=== PATIENT | male | born 1975 | race African-American/Black ===

== ENCOUNTER 2018-01-20 05:44 | Inpatient (IN) | payer BC, OTHER ==
[2018-01-20] MEDS ORDERED: methylPREDNISolone 125 MG* 2 ML VIAL IV ONE (06:06)
[2018-01-20] MEDS ORDERED: Albuterol/Ipratropium NEB.SOL* Albuterol 2.5 MG/Ipratropium 0.5 MG 3 ML INH ONE (06:06)
[2018-01-20] MEDS ORDERED: methylPREDNISolone 125 MG* 2 ML VIAL ONE (06:08)
[2018-01-20] MEDS ORDERED: Albuterol/Ipratropium NEB.SOL* Albuterol 2.5 MG/Ipratropium 0.5 MG 3 ML ONE ×2 (06:08→06:33)
--- OUTSIDE RECORDS SUMMARY | 2018-01-20 06:21 | XMS REPORT | Continuity of Care Document ---
:1975 External Reference #:[id number] Author Name Inna Lion Care Team Providers Name Role Phone Patient's Choice Primary Care Physician Unavailable Payers Type Date Identification Numbers Payment Provider Subscriber Policy Number: [id number] [employer] Arnoldo Álvarez PayID: [id number] [address] [address] [place] [address] Onset: 2017 Policy Number: [id number] [employer] Arnoldo Álvarez Group Name: [phone] [address] PayID: [id number] [place] [address] Advance Directives Description No Information Available Problems Description No Information Family History Date Family Member(s) Problem(s) Comments General Hypertension General Cancer Social History Type Date Description Comments Sex Unknown Lives With Spouse 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 ETOH Use Occasionally consumes alcohol Tobacco Use Start: Unknown Patient is a current smoker, smokes every day Smoking Status Reviewed: 01/07/18 Patient is a current smoker, smokes every day Exercise Type/Frequency Does not exercise Allergies, Adverse Reactions, Alerts Description No Known Drug Allergies Medications Medication Date Status Form Strength Qnty SIG Indications Ordering Provider Prednisone Active Tablets 10mg Humayun, 000 Arnel, MBBS Escitalopram Active Tablets 20mg take 1 Unknown Oxalate 000 tablet once daily Dulera Active Aerosol 200-5mcg/A inhale [address]uffs twice a day With Chamber - Rinse Mouth After Use Spiriva Active Aerosol 1.25mcg/Ac Unknown Respimat 000 t Montelukast Active Tablets 10mg take 1 Unknown Sodium 000 tablet by mouth once daily Omeprazole Active Capsules 40mg [address] by mouth once daily, 30 minutes prior to breakfast . Medications Administered in Office Medication Date Status Form Strength Qnty SIG Indications Ordering Provider Depomedrol Administered Injection Horace Sunshine, 20MG 018 M.D. Depomedrol Administered Injection Horace Sunshine, 40MG 017 M.D. Immunizations Description No Information Available Vital Signs Date Vital Result Comment 01/07/2018 8:12am Height 71 inches 5'11" Weight 260.00 lb Heart Rate 82 /min BP Systolic 140 mmHg BP Diastolic 82 mmHg Respiratory Rate 18 /min Body Temperature 97.6 F Pain Level 5 BMI (Body Mass Index) 36.3 kg/m2 12/16/2017 8:35am Heart Rate 70 /min BP Systolic 132 mmHg BP Diastolic 88 mmHg Body Temperature 98.2 F Pain Level 5 12/07/2017 8:06am Heart Rate 88 /min BP Systolic 144 mmHg BP Diastolic 98 mmHg Respiratory Rate 18 /min Pain Level 4 11/25/2017 8:54am Height 71 inches 5'11" Weight 255.00 lb BP Systolic 122 mmHg BP Diastolic 78 mmHg Respiratory Rate 18 /min Body Temperature 97.4 F Pain Level 7 BMI (Body Mass Index) 35.6 kg/m2 05/01/2017 3:22pm Height 71 inches 5'11" Weight 255.00 lb BP Systolic 122 mmHg BP Diastolic 81 mmHg Respiratory Rate 15 /min Pain Level 4 BMI (Body Mass Index) 35.6 kg/m2 10/13/2016 3:18pm Height 71 inches 5'11" Weight 240.00 lb BP Systolic 128 mmHg BP Diastolic 88 mmHg Respiratory Rate 20 /min Body Temperature 97.3 F Pain Level 4 BMI (Body Mass Index) 33.5 kg/m2 Results Description No Information Available Procedures Date Code Description Status 12/16/201739394 Inject/Drain Joint/Bursa Major W/O US Completed 10/13/2016 13935 Inject/Drain Joint/Bursa Major W/O US Completed Encounters Type Date Location Provider Dx Diagnosis Office Visit 12/07/2017 Orthopedic Horace Sunshine M.D. M25.511 Pain in right 8:15a [facility] S46.011D Strain of musc/tend the rotator cuff of right shoulder, subs Office Visit 11/25/2017 8:45a Orthopedic Horace Sunshine S46.011A Strain of [facility] musc/tend the [facility] rotator cuff of right shoulder, init Office Visit 05/01/2017 3:15p [facility] M21.611 Bunion of right [facility] M20.41 Other hammer toe(s) (acquired), right foot Office Visit 10/13/2016 Orthopedic Horace Sunshine, M65.812 Other synovitis and 3:00p [facility] tenosynovitis, left [facility] shoulder M20.41 Other hammer toe(s) (acquired), right foot M75.82 Other shoulder lesions, left shoulder M75.52 Bursitis of left shoulder Plan of Treatment 01/07/2018 - Graham Chavez, MDS46.011A Strain of muscle(s) and tendon(s) of the rotator cuff of rigFollow up:to OR
--- NOTE | 2018-01-20 06:24 | ED ---
Asthma - HPI Summary HPI Summary: Patient presents with acute on chronic asthma exacerbation. He reports this started about 2 weeks ago and has gotten worse recently. He initially started with URI symptoms which have subsided to simply rhinorrhea at this point. He denies fever, chills, chest pain, back pain, hemoptysis, abdominal pain, nausea , vomiting, diarrhea, lower extremity swelling. He has a history of asthma and early COPD. At home, he typically uses a DuoNeb nebulizer however he ran out of his solution. He has been using his albuterol HFA along with his dulera and spiriva w/o relief. Additionally, he reports he's been taking 20 mg of prednisone orally daily. Yesterday at 10:00 in the morning, he took 60 mg of prednisone without relief. 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 He has a history of asthma exacerbation requiring hospitalization. Also mentions he has a h/o Rt rib fx from coughing and has had some popping on this side with severe cough. No other issues at this time. - History of Current Complaint Chief Complaint: EDShortnessOfBreath Stated Complaint: SOB Time Seen by Provider: 01/20/18 05:56 Hx Obtained From: Patient Pain Intensity: 0 - Allergy/Home Medications Allergies/Adverse Reactions: Allergies Allergy/AdvReac Type Severity Reaction Status Date / Time No Known Allergies Allergy Verified 01/20/18 05:51 PMH/Surg Hx/FS Hx/Imm Hx Previously Healthy: Yes Endocrine/Hematology History: Denies: Hx Anticoagulant Therapy, Hx Diabetes, Hx Thyroid Disease Cardiovascular History: Denies: Hx Congenital Heart Disease, Hx Congestive Heart Failure, Hx Deep Vein Thrombosis, Hx Hypertension, Hx Myocardial Infarction, Hx Pacemaker/ICD Respiratory History: Reports: Hx Asthma, Hx Chronic Obstructive Pulmonary Disease (COPD) - h/o smoking, Other Respiratory Problems/Disorders - h/o rib fx Denies: Hx Lung Cancer, Hx Pneumonia, Hx Pulmonary Embolism GI History: Denies: Hx Gall Bladder Disease, Hx Gastrointestinal Bleed, Hx Ulcer, Hx Urosepsis History: Denies: Hx Kidney Stones, Hx Renal Disease Sensory History: Denies: Hx Hearing Aid Neurological History: Denies: Hx Dementia, Hx Migraine, Hx Seizures, Hx Transient Ischemic Attacks (TIA) Psychiatric History: Reports: Hx Anxiety, Hx Depression Denies: Hx Panic Disorder, Hx Schizophrenia, Hx Bipolar Disorder - Surgical History Surgery Procedure, Year, and Place: RIGHT ANKLE Infectious Disease History: No Infectious Disease History: Denies: Traveled Outside the [place] in Last 30 Days - Family History Known Family History: Positive: Hypertension Negative: Cardiac Disease - Social History 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 Negative: Epistaxis, Dental Pain, Sore Throat, Ear Ache Cardiovascular: Negative Negative: Palpitations, Chest Pain Positive: Shortness Of Breath, Cough Gastrointestinal: Negative Positive: no symptoms reported Musculoskeletal: Negative Skin: Negative Positive: Headache - from cough Psychological: Normal All Other Systems Reviewed And Are Negative: Yes Physical Exam Triage Information Reviewed: Yes Vital Signs On Initial Exam: Initial Vitals Temp Pulse Resp BP Pulse Ox 98.9 F 96 26 136/94 95 01/20/18 05:46 01/20/18 05:46 01/20/18 05:46 01/20/18 05:46 01/20/18 05:46 Vital Signs Reviewed: No Appearance: Positive: No Pain Distress, Ill-Appearing - appears mildly fatigued - worked 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 Negative: Conjunctiva Inflammed, Discharge ENT: Positive: Normal ENT inspection, Hearing grossly normal, Pharynx normal, TMs normal, Sinus tenderness - maxillary w/ mild TTP. Negative: Nasal congestion, Tonsillar swelling, Tonsillar exudate Neck: Positive: Supple, Nontender, No Lymphadenopathy Respiratory/Lung Sounds: Positive: Wheezes - diffuse throughout. Negative: Decreased Breath Sounds, Rales, Rhonchi, Subcutaneous Emphysema, Stridor, Tracheal Deviation, Unable to speak in full sentences, Fatigue Cardiovascular: Positive: Normal, RRR, S1, S2. Negative: Murmur, Rub, Leg Edema Left, Leg Edema Right Abdomen Description: Positive: Nontender, No Organomegaly, Soft Bowel Sounds: Positive: Present Musculoskeletal: Positive: Normal, Strength/ROM Intact Neurological: Positive: Normal, Sensory/Motor Intact, Alert, Oriented to Person Place, Time, CN Intact II-III Psychiatric: Positive: Normal Diagnostics - Vital Signs Vital Signs Temp Pulse Resp BP Pulse Ox 01/20/18 05:46 98.9 F 96 26 136/94 95 - Laboratory Result Diagrams: 01/20/18 08:02 01/20/18 08:02 Lab Statement: Any lab studies that have been ordered have been reviewed, and results considered in the medical decision making process. Re-Evaluation - Re-Evaluation First Eval Change: Unchanged - peak flow pre and post duoneb and solumedrol is 200 - 50% if 300's; pt reports breathing is slighltly easier but "I'm not there yet" ( breathing is still difficult) Asthma Course/Dx - Course Course Of Treatment: Pt presents with acute on chronic asthma/COPD exacerbation. He routinely uses DuoNeb, Dulera and Spiriva and is followed by pulmonology in [place]. He ran out of his DuoNeb recently and has been trying to supplement with oral prednisone at home. He's been taking 20 mg daily however admits he took 60 mg yesterday. He's also been using his albuterol HFA. None of these interventions have been helping and his breathing became so difficult today that he had to leave in the middle of his work shift. He appears to be in a moderate exacerbation clinically and so DuoNeb every 20 mins + Solu-Medrol 125mg IV were initiated. However learning his peak flow was less than 50% with no improvement after treatments and pulse ox dropped from 95-90% and room air, patient was placed on 2 L oxygen via nasal cannula, 2 g of magnesium IV ordered, labs ordered and discussed case with Dr. Ellie Valencia who agrees to admit pending labs. Patient's wet read chest x-ray is unremarkable for acute pulmonary findings (reviewed with Dr. Wing as well). Patient is comfortable and pulse ox has increased to 97% on 2 L nasal cannula. UPDATE: Chronic appearing fracture of the right seventh rib posteriorly. Labs: WBCs 14.4, hemoglobin 13.4, hematocrit 40, MCV 97, MCH 32, absolute neuts 12.7, absolute lymphs 0.9, venous PCO2 39, venous PO2 57, venous O2 sat 90.5, creatinine 1.2. All other labs within normal limits. - Diagnoses Provider Diagnoses: Asthma exacerbation, COPD exacerbation Discharge - Sign-Out/Discharge Documenting (check all that apply): Patient Departure - Discharge Plan Condition: Stable Disposition: ADMITTED TO [facility] Referrals: Jason Adame DO [Primary Care Provider] - - Billing Disposition and Condition Condition: STABLE Disposition: Admitted to [facility]
[2018-01-20] MEDS: Albuterol/Ipratropium NEB.SOL* Albuterol 2.5 MG/Ipratropium 0.5 MG 3 ML INH PRN ×3 (06:29→06:59)
[2018-01-20] MEDS ORDERED: Magnesium Sulfate IV* 0.5 GM/ML 2 ML VIAL (1 GM) IVPB ONE (07:37)
[2018-01-20] MEDS ORDERED: NS 0.9% 1000 ML* 1,000 ML IV ONE (07:37)
[2018-01-20 08:13] LABS: ABS Basophils 0 10^3/ul (0-0.2); ABS Eosinophils 0 10^3/ul (0-0.6); ABS Lymphocytes 0.9 10^3/ul (1.0-4.8); ABS Monocytes 0.7 10^3/ul (0-0.8); ABS Neutrophils 12.7 10^3/ul (1.5-7.7); ABS Nucleated RBC 0 10^3/ul; Eosinophil % 0.3 %; Hematocrit 40 % (42-52); Hemoglobin 13.4 g/dl (14.0-18.0); Lymphocyte % 6.4 %; Mean Corpuscular HGB Conc 33 g/dl (31-36); Mean Corpuscular Hemoglobin 32 pg (27-31); Mean Corpuscular Volume 97 fL (80-94); Mean Platelet Volume 7.8 fL (7.4-10.4); Nucleated Red Blood Cells % 0; Platelet Count 183 10^3/ul (150-450); Red Blood Count 4.16 10^6/ul (4.00-5.40); Red Cell Distribution Width 14 % (10.5-15); White Blood Count 14.4 10^3/ul (3.5-10.8)
[2018-01-20 08:20] LABS: INR 0.91 (0.77-1.02)
[2018-01-20 08:26] LABS: EGFR Non-African American 65.8 (>60)
[2018-01-20] MEDS ORDERED: Al Hydrox/Mg Hydrox/Simet LIQ* 30 ML UDC PO PRN (08:42)
[2018-01-20] MEDS ORDERED: Albuterol 2.5 MG/3 ML NEB.SOL* (0.083%) INH PRN (08:42)
[2018-01-20] MEDS ORDERED: Omeprazole CAP* 20 MG PO PRN (10:14)
[2018-01-20] MEDS ORDERED: Azithromycin IV(*) 500 MG in NS 0.9% 250 ML* 250 ML IVPB ONE (10:16)
[2018-01-20] MEDS: Albuterol/Ipratropium NEB.SOL* Albuterol 2.5 MG/Ipratropium 0.5 MG 3 ML INH SCH ×3 (11:26→20:34)
[2018-01-20] MEDS: methylPREDNISolone SOD 40 MG* 1 ML VIAL IV SCH ×2 (11:38→19:45)
[2018-01-20] MEDS: Enoxaparin(*) 40 MG/0.4 ML SYR SUBCUT SCH (11:38)
[2018-01-20] MEDS: Acetaminophen TAB* 325 MG PO PRN (15:46)
--- NOTE | 2018-01-20 19:39 | HP ---
CC: Gricel Zapata PA-C * HISTORY AND PHYSICAL: DATE OF ADMISSION: 01/20/18 TIME OF ADMISSION: 10 o'clock a.m. PRIMARY CARE PROVIDER: Gricel Zapata PA-C CHIEF COMPLAINT: Shortness of breath. HISTORY OF PRESENT ILLNESS: This is a 42-year-old man with history of severe persistent asthma, who presents to the emergency department today with one-and-a - half week of increased chest congestion and shortness of breath. He always has phlegm, which varies in color and consistency, which he thinks is unchanged , but he noticed that he was having a hard time getting it out, though he was coughing frequently. He also noted a suspected upper respiratory infection with a frequent runny nose. He has continued to go to work. 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 So, he decided he should come to the emergency department. He sees a desktop publishing specialist in [place] who treats him with daily prednisone, which he says he has been on for several years. He dose of prednisone was recently increased from 10 mg daily to 20 mg daily, approximately 2 months ago and he has continued to take this without interruption. He has albuterol nebs at home, which he has been trying without relief. He also increased his home prednisone dose from 20 mg daily to 60 mg daily yesterday without any relief. He did have DuoNeb at home, but he ran out of them last year, has not used them since. He has been adherent with his prescribed Spiriva and Dulera and montelukast. He has now been hospitalized for asthma in the past year, but prior to that he thinks he was hospitalized every few months. He has never been intubated for an asthma exacerbation. At this time, he is feeling a little bit better after receiving 3 DuoNeb and Solu- Medrol in the emergency department. His peak flow was reported to be 200 in the ED. PAST MEDICAL HISTORY: Severe persistent asthma and depression. PAST SURGICAL HISTORY: Right ankle fracture repair. HOME MEDICATIONS: 1. Prednisone 20 mg daily. 2. Spiriva 2 puffs daily. 3. Dulera 2 puffs b.i.d. 4. Montelukast 10 mg q.h.s. 5. Lexapro 20 mg daily. 6. Mucinex daily. 7. Omeprazole p.r.n. FAMILY HISTORY: No lung pathology that he knows of. SOCIAL HISTORY: He lives with his , Brandy who is here with him. 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 He is a former smoker. He quit approximately 1 year ago and he is also a former cocaine user, but has not inhaled cocaine recently. He drinks a couple of beers per day on the weekends. REVIEW OF SYSTEMS: Positive for cough, phlegm, and runny nose. He denies fever , sore throat, orthopnea, weight gain or weight loss, nausea, vomiting, constipation, or diarrhea. Remainder of 14-point review of systems is negative. PHYSICAL EXAMINATION GENERAL: Alert, well-appearing man in no distress. He is able to speak in full sentences and is resting comfortably in bed. VITAL SIGNS: Temperature 98.8, heart rate 105, respiratory rate 24, pulse ox 98 % on room air, blood pressure 153/98. HEENT: Pupils equal, round, reactive to light. Oral mucosa is moist. No pharyngeal exudates. No mucosal lesions. NECK: No JVP. No adenopathy. CHEST: Mildly tachycardic with no murmurs. Has diffuse expiratory wheezing with a prolonged expiratory phase. ABDOMEN: Obese, soft, nontender, and nondistended. No guarding or rebound. EXTREMITIES: No edema, no calf tenderness, no rashes. DIAGNOSTIC STUDIES/LABORATORY DATA: White blood cells 14.4, hemoglobin 13.4, platelets 183. INR was 0.91. VBG 7.42/39. Sodium 139, potassium 3.7, chloride 104, bicarb 24. Creatinine 1.20. Glucose 97. Lactic acid 2.0. Chest x-ray, no active cardiopulmonary disease. ASSESSMENT AND PLAN: This is a 42-year-old man with history of persistent asthma, who is followed by a desktop publishing specialist in [place] and takes a daily prednisone, who presents to the emergency department with shortness of breath for 1 week. 1. Acute respiratory distress. This is likely related to an asthma exacerbation as he has several provoking factors including dust exposure and a URI. He is resting comfortably at this time. However, his peak flow is poor at 200 and he has failed outpatient increased doses of prednisone. I am treating him with IV Solu- Medrol, milena LouoNeb and azithromycin for antiinflammatory effect and also for URI. I will discuss the case with Dr. Stevens, as he has had such poorly controlled asthma necessitating chronic prednisone use. I am also going to request the records from [place] including PFTs and a CT scan. Given his history of cocaine use, I wonder if he has some parenchymal damage from that or if he has been worked up for other causes of obstructive lung disease. He has never been intubated in the past, which is reassuring and his work of breathing at this time is quite comfortable. I will check sputum culture if he is able to produce one. 2. Chronic prednisone use. He should really be on PCP prophylaxis on this chronic dose of prednisone. Again, I am requesting records from [place] to see why this has not been done. After I see those records, I think he should be started on Bactrim 3 times a week. 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 3. Depression. Continue home Lexapro. 4. DVT prophylaxis. Lovenox daily. [id number]/[facility] #: [id number] KIANNA
[2018-01-20] MEDS: guaiFENesin ER TAB 600 MG PO PRN (19:45)
--- NOTE | 2018-01-20 22:47 | CONS ---
PULMONARY CONSULTATION REPORT: DATE OF CONSULT: 01/20/18 CONSULTATION REQUESTED BY: Dr. Geetha Valencia. REASON FOR CONSULT: Evaluation of shortness of breath. HISTORY OF PRESENT ILLNESS: The patient is a 42-year-old morbidly obese male with history of asthma; IgE deficiency; allergies; sleep apnea, not been treated currently; former smoker with possibility of COPD, being exposed to airway irritants from his occupation; chronic prednisone dependent, being evaluated by shingle sawyer in [place]. The patient presents to the emergency room for evaluation of worsening shortness of breath. The patient has been on chronic prednisone therapy through his shingle sawyer. He was recently increased to 20 mg of prednisone on which he has been for about a month to a month and a half. He has had 3 asthma exacerbations in the past year and a half. The patient chronically at 5 to 10 mg of prednisone at baseline. He was evaluated by inspector final assembly electrical in the past, was found to have elevated eosinophils and also elevated IgE. He has received Xolair infusion, which was changed to Nucala. The patient stopped receiving infusions about 2 months ago. The patient reports that his symptoms changed since then. 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 He is a former smoker, quit 2 years ago. He was diagnosed with mild sleep apnea in the past, was not being treated. He has occasional GERD symptoms. His allergies are active. He did not feel like benefiting from allergy therapy and quit seeing his inspector final assembly electrical. He presents for evaluation of worsening shortness of breath over the past 2 weeks. These symptoms were preceded by URI symptoms, which is currently resulting only in some mild rhinorrhea and postnasal drip. Denied fevers, chills, chest pain, back pain, hemoptysis, abdominal pain, nausea, vomiting, diarrhea, or lower extremity swelling. He has been using nebulizers at home, ran out of his DuoNeb nebulizer therapy. He has been on 20 mg of prednisone, which he increased to 60 mg with no relief. The patient reports coughing and discomfort in his ribs from the coughing; however, denies chest pain. Further evaluation revealed significant wheezing and he was admitted for management of acute asthma/COPD exacerbation. The patient has required O2 supplementation at 2 to 2.5 L with good oxygen saturations. The patient noted to have elevated white count, which probably is from using prednisone. He did not have evidence of eosinophilia. Blood gas analysis revealed PCO2 of 39 with pH of 7.42 consistent with respiratory alkalosis. His PO2 was low at 57 with O2 sat of 90% on room air. His creatinine was slightly elevated at 1.2. Lactic acid was within normal limits. The patient reports slight improvement in his symptoms this morning. He was initiated on Solu-Medrol at 40 mg IV q.8, bronchodilators [id number] , which are helping. He has been on Zithromax also. PAST MEDICAL HISTORY: 1. Asthma/COPD. 2. Morbid obesity. 3. Sleep apnea. 4. Former smoking history. PAST SURGICAL HISTORY: Right ankle surgery. ALLERGIES: No known drug allergies. FAMILY HISTORY: Hypertension. SOCIAL HISTORY: Former smoker, half pack per day for 16 years, quit smoking 2 years ago. Smokes marijuana. Denies any other drug abuse or alcohol abuse. 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 REVIEW OF SYSTEMS: All 14 systems reviewed and as per HPI. PHYSICAL EXAM: Morbidly obese male, lying in bed, in no apparent distress. Vital Signs: Temperature 97.8, pulse 86 beats per minute, respiratory rate 18 per minute, O2 sat 99% on 2.5 L with blood pressure of 145/89. HEENT: Pupils are equal and reactive to light, mucous membranes moist. Lungs: Diminished air entry bilaterally, significant expiratory wheeze bilaterally. Cardiovascular: S1, S2 present. Regular. Abdomen: Obese, bowel sounds present, nontender, nondistended. Extremities: Normal range of motion. No edema. Skin: No rash or bruises. Neuro: No focal deficits. DIAGNOSTIC STUDIES/LAB DATA: WBC count 14.4, hemoglobin 13.4, hematocrit 40, platelet count 183. Blood gas analysis: PH 7.42, PCO2 39, PO2 57, bicarb 25. Sodium 139, potassium 3.7, chloride 104, bicarb 24, BUN 23, creatinine 1.20, lactic acid 2. Influenza A and B negative. Chest x-ray performed on admission was personally reviewed by me - no suspicious airspace opacities. No evidence of hyperinflation. IMPRESSION AND RECOMMENDATIONS: 42-year-old male, former smoker with history of asthma; allergies; IgE deficiency, received infusions in the past, admitted with worsening shortness of breath, found to have acute asthma/chronic obstructive pulmonary disease exacerbation. The patient with significant exacerbation at this time. He has been on chronic prednisone given history of recurrent exacerbations, prednisone dose increased recently, in spite of that he had worsening shortness of breath. The patient would benefit from IV steroids. Will also order nebulizers [id number]. Will initiate the patient on antibiotics for bronchitis. Chest x-ray did not reveal evidence of pneumonia, leukocytosis is likely secondary to being on steroids. He has recurrent asthma exacerbations due to his occupation and also history of IgE deficiency. He has discontinued IgE infusions. Pathophysiology of asthma/chronic obstructive pulmonary disease was discussed in detailed with the patient. Importance of optimal control of allergies was discussed. Importance of avoiding asthma triggers was discussed. Importance of compliance with anti-IgE therapy was discussed. Agree with current management, would not taper Solu-Medrol yet. Continue with bronchodilators. Will need sleep study evaluation as outpatient. Thank you for allowing me to participate in the care of your patient. Will follow up with you. [id number]/[facility] #: [id number] KIANNA
[2018-01-21] MEDS: Albuterol/Ipratropium NEB.SOL* Albuterol 2.5 MG/Ipratropium 0.5 MG 3 ML INH SCH ×4 (00:46→20:35)
[2018-01-21] MEDS: methylPREDNISolone SOD 40 MG* 1 ML VIAL IV SCH ×3 (03:00→18:23)
[2018-01-21 07:12] LABS: ABS Basophils 0 10^3/ul (0-0.2); ABS Eosinophils 0 10^3/ul (0-0.6); ABS Lymphocytes 0.6 10^3/ul (1.0-4.8); ABS Monocytes 0.4 10^3/ul (0-0.8); ABS Neutrophils 14.7 10^3/ul (1.5-7.7); ABS Nucleated RBC 0 10^3/ul; Eosinophil % 0 %; Hematocrit 42 % (42-52); Hemoglobin 13.7 g/dl (14.0-18.0); Lymphocyte % 3.6 %; Mean Corpuscular HGB Conc 33 g/dl (31-36); Mean Corpuscular Hemoglobin 32 pg (27-31); Mean Corpuscular Volume 97 fL (80-94); Mean Platelet Volume 7.9 fL (7.4-10.4); Nucleated Red Blood Cells % 0; Platelet Count 184 10^3/ul (150-450); Red Cell Distribution Width 15 % (10.5-15); White Blood Count 15.7 10^3/ul (3.5-10.8)
[2018-01-21 07:28] LABS: EGFR Non-African American 73.5 (>60)
[2018-01-21] MEDS: Citalopram TAB* 40 MG PO SCH (08:08)
[2018-01-21] MEDS: Azithromycin TAB* 250 MG PO SCH (08:08)
[2018-01-21] MEDS: Montelukast Sodium TAB* 10 MG PO SCH (08:08)
[2018-01-21] MEDS: Enoxaparin(*) 40 MG/0.4 ML SYR SUBCUT SCH (08:09)
--- NOTE | 2018-01-21 12:00 | PN ---
Subjective Date of Service: 01/21/18 Interval History: Patient is resting in bed on assessment with NC in place at 2 L He reports he feels slightly improved from yesterday, but still feels "tight". Reports yesterday he was sob with ambulation to the bathroom, but today he can ambulate to bathroom with less difficulty. Denies cp, palpitations, n/v/d. 12 point ROS completed and all others negative except above mentioned. Objective Active Medications: Acetaminophen (Tylenol Tab*) 650 mg PO Q4H PRN PRN Reason: FEVER/PAIN Last Admin: 01/20/18 15:46 Dose: 650 mg Al Hydrox/Mg Hydrox/Simethicone (Maalox Plus*) 30 ml PO Q6H PRN PRN Reason: INDIGESTION Albuterol/Ipratropium (Duoneb (Albuterol 2.5 Mg/Ipratropium 0.5 Mg)) 1 neb INH [id number] AWAKE [facility] [place] Last Admin: 01/21/18 07:24 Dose: 1 neb Azithromycin (Zithromax Tab*) 250 mg PO DAILY [facility] [place] Last Admin: 01/21/18 08:08 Dose: 250 mg Citalopram Hydrobromide (Celexa Tab*) 40 mg PO DAILY [facility] [place] Last Admin: 01/21/18 08:08 Dose: 40 mg Enoxaparin Sodium (Lovenox(*)) 40 mg SUBCUT Q24H [facility] [place] Last Admin: 01/21/18 08:09 Dose: 40 mg Guaifenesin (Mucinex*) 600 mg PO BID PRN PRN Reason: CONGESTION Last Admin: 01/20/18 19:45 Dose: 600 mg Methylprednisolone Sodium Succinate (Solu-Medrol 40 Mg) 40 mg IV Q8H [facility] [place] Last Admin: 01/21/18 03:00 Dose: 40 mg Montelukast Sodium (Singulair Tab*) 10 mg PO DAILY [facility] [place] Last Admin: 01/21/18 08:08 Dose: 10 mg Omeprazole (Prilosec Cap*) 20 mg PO DAILY PRN PRN Reason: HEARTBURN Vital Signs - 8 hr 01/21/18 01/21/18 01/21/18 07:26 08:00 08:55 Temperature 97.9 F Pulse Rate 84 106 Respiratory 16 16 22 Rate Blood Pressure (mmHg) O2 Sat by Pulse 97 97 Oximetry 01/21/18 09:30 Temperature Pulse Rate Respiratory Rate Blood Pressure 156/86 (mmHg) O2 Sat by Pulse Oximetry Oxygen Devices in Use Now: Nasal Cannula Appearance: Comfortable, NAD Eyes: PERRLA Ears/Nose/Mouth/Throat: Clear Oropharnyx, Mucous Membranes Moist Neck: NL Appearance and Movements; NL JVP Respiratory: Symmetrical Chest Expansion and Respiratory Effort - Wheezing heard throughout. Mildy decreased airflow Cardiovascular: NL Sounds; No Murmurs; No JVD, RRR, No Edema Abdominal: NL Sounds; No Tenderness; No Distention Lymphatic: No Cervical Adenopathy Extremities: No Edema Skin: No Rash or Ulcers Neurological: Alert and Oriented x 3 Nutrition: Taking PO's Result Diagrams: 01/21/18 06:45 01/21/18 06:45 Additional Lab and Data: Laboratory Results - last 24 hr 01/20/18 01/21/18 01/21/18 11:55 06:45 06:45 WBC 15.7 H RBC 4.30 Hgb 13.7 L Hct 42 MCV 97 H MCH 32 H MCHC 33 RDW 15 Plt Count 184 MPV 7.9 Neut % (Auto) 93.5 Lymph % (Auto) 3.6 [place] % (Auto) 2.8 Eos % (Auto) 0 Baso % (Auto) 0.1 Absolute Neuts (auto) 14.7 H Absolute Lymphs (auto) 0.6 L Absolute Monos (auto) 0.4 Absolute Eos (auto) 0 Absolute Basos (auto) 0 Absolute Nucleated RBC 0 Nucleated RBC % 0 Sodium 139 Potassium 4.5 Chloride 105 Carbon Dioxide 24 Anion Gap 10 BUN 17 Creatinine 1.09 Est GFR ( Amer) 88.9 Est GFR (Non-Af Amer) 73.5 BUN/Creatinine Ratio 15.6 Glucose 118 H Calcium 9.7 Influenza A (Rapid) Negative Influenza B (Rapid) Negative Microbiology and Other Data: Microbiology 01/21/18 08:15 Sputum Gram Stain - Final 01/20/18 11:45 Nasopharyngeal Influenza Types A,B Antigen - Final Specimen received for Influenza A/B Molecular testing Diagnostic Imaging: . EKG Data: . Assess/Plan/Problems-Billing Assessment: Patient presented to ED with asthma exacerbation, which started about 2 weeks ago. Hx of asthma and early COPD. Ran out of DuoNeb nebulizer. Takes 20 mg of prednisone orally daily and attempted to treat symptoms by increasing to 60 mg of prednisone, but had no without relief. - Patient Problems (1) Acute respiratory distress syndrome in adult Comment: - Patient requires hospitalization due to failing outpatient oral prednisone treatment. - Provoking factors for current asthma exacerbation include occupational exposure to dust and URI. - Slowly improving with shceduled Duonebs, supplemental O2, Azithromax, and IV steriods. - Dr Stevens consulted and we very much appreciate her input and assisting us with this patient - We have requested records from [place] where patient sees Dr Luna. - Due to previous cocaine use and chemical exposure, he might need further investigation with CT, but we will await records fro [place]. 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 I discussed this with patient and he agrees to resume treatment after discharge. (3) IgE deficiency Comment: - Patient was receiving treatment with Dr Luna, but stopped as he did not believe it was helping. I discussed this with patient and he agrees to resume treatment after discharge (4) Sleep apnea Comment: - Patient reports that several years ago he was diagnosed with mild sleep apnea , but did not require treatment - Dr Stevens recommends repeat sleep study as outpatient. - I discussed repeat sleep study with patient and risks of untreated sleep apnea. Patient agrees to follow up (5) Cocaine abuse in remission Comment: - Patient report hx of cociane use. - Hx of cociane use could have caused some damamge. Awaiting records - In addition patient would like to see ENT as oupatient as he wonders if his nose is "messed up", but he denies symptoms. (6) Current non-smoker but past smoking history unknown Comment: - Previous smoker (7) Depression Comment: - Continue home medications (8) DVT prophylaxis Comment: - Continue Lovenox (9) Full code status Comment: - Full Code Status and Disposition: Inpatient. Discharge home with close follow up with pulmonology when medically stable Attending: Geetha Valencia
[2018-01-21] MEDS: guaiFENesin ER TAB 600 MG PO PRN (12:23)
[2018-01-21] MEDS: Acetaminophen TAB* 325 MG PO PRN (18:21)
--- NOTE | 2018-01-21 21:03 | PN ---
Progress Note - Progress Note Date of Service: 01/21/18 - Pulm f/u note Note: Pt seen and examined at bedside, pt reports slight improvement in breathing Active Medications Generic Name Dose Route Start Last Admin Trade Name Freq PRN Reason Stop Dose Admin Acetaminophen 650 mg 01/20/18 08:42 01/21/18 18:21 Tylenol Tab* PO 650 mg Q4H PRN Administration FEVER/PAIN Al Hydrox/Mg Hydrox/Simethicone 30 ml 01/20/18 08:42 Maalox Plus* PO Q6H PRN INDIGESTION Albuterol/Ipratropium 1 neb 01/20/18 19:00 01/21/18 20:35 Duoneb (Albuterol 2.5 Mg/Ipratropium 0.5 Mg) INH 1 neb [id number] AWAKE [facility] Administration Azithromycin 250 mg 01/21/18 09:00 01/21/18 08:08 Zithromax Tab* PO 250 mg DAILY [facility] Administration Citalopram Hydrobromide 40 mg 01/21/18 09:00 01/21/18 08:08 Celexa Tab* PO 40 mg DAILY [facility] Administration Enoxaparin Sodium 40 mg 01/20/18 09:00 01/21/18 08:09 Lovenox(*) SUBCUT 40 mg Q24H [facility] Administration Guaifenesin 600 mg 01/20/18 18:22 01/21/18 12:23 Mucinex* PO 600 mg BID PRN Administration CONGESTION Methylprednisolone Sodium Succinate 40 mg 01/20/18 11:00 01/21/18 18:23 Solu-Medrol 40 Mg IV 40 mg Q8H [facility] Administration Montelukast Sodium 10 mg 01/21/18 09:00 01/21/18 08:08 Singulair Tab* PO 10 mg DAILY [facility] Administration Omeprazole 20 mg 01/20/18 10:14 Prilosec Cap* PO DAILY PRN HEARTBURN Vital Signs Temp Pulse Resp BP Pulse Ox 98.7 F 83 18 134/79 99 01/21/18 15:26 01/21/18 20:00 01/21/18 20:00 01/21/18 15:26 01/21/18 20:00 O/E: Pt in NAD, morbidly obese HEENT: PERRLA, NO JVD Lungs: Wheeze + on auscultation CVS: S1, S2+, regular Abd: Soft, BS+ Ext: No edema, normal ROM Neuro: No focal deficits Laboratory Results - last 24 hr 01/21/18 01/21/18 06:45 06:45 WBC 15.7 H RBC 4.30 Hgb 13.7 L Hct 42 MCV 97 H MCH 32 H MCHC 33 RDW 15 Plt Count 184 MPV 7.9 Neut % (Auto) 93.5 Lymph % (Auto) 3.6 [place] % (Auto) 2.8 Eos % (Auto) 0 Baso % (Auto) 0.1 Absolute Neuts (auto) 14.7 H Absolute Lymphs (auto) 0.6 L Absolute Monos (auto) 0.4 Absolute Eos (auto) 0 Absolute Basos (auto) 0 Absolute Nucleated RBC 0 Nucleated RBC % 0 Sodium 139 Potassium 4.5 Chloride 105 Carbon Dioxide 24 Anion Gap 10 BUN 17 Creatinine 1.09 Est GFR ( Amer) 88.9 Est GFR (Non-Af Amer) 73.5 BUN/Creatinine Ratio 15.6 Glucose 118 H Calcium 9.7 I/R: 42 y o morbidly obese m with h/o asthma, allergies, IgE def received Nucala in the past, sleep apnea not being treated currently with recurrent asthma exacerbations, on chronic prednisone therapy, 3 exacerbations in the past year admitted for worsening SOB inspite of increase in prednisone. Pt being treated for acue asthma exacerbation, improving slowly Still has significant wheezing c/w solumedrol 40mg IV q 8hrs c/w bronchodilators Azithromycin for 5 day course Not reqiring O2 supplementation at rest Will need to assess O2 requirement with exertion Has stopped infusions with anti IgE with worsening sx recently Will need sl study as out pt GERD precuations
[2018-01-22] MEDS: Albuterol/Ipratropium NEB.SOL* Albuterol 2.5 MG/Ipratropium 0.5 MG 3 ML INH SCH ×4 (01:07→20:12)
[2018-01-22] MEDS: methylPREDNISolone SOD 40 MG* 1 ML VIAL IV SCH ×3 (03:05→20:02)
[2018-01-22 06:39] LABS: ABS Basophils 0 10^3/ul (0-0.2); ABS Eosinophils 0 10^3/ul (0-0.6); ABS Lymphocytes 0.3 10^3/ul (1.0-4.8); ABS Monocytes 0.5 10^3/ul (0-0.8); ABS Neutrophils 13.5 10^3/ul (1.5-7.7); ABS Nucleated RBC 0 10^3/ul; Eosinophil % 0 %; Hematocrit 39 % (42-52); Lymphocyte % 2.3 %; Mean Corpuscular HGB Conc 33 g/dl (31-36); Mean Corpuscular Hemoglobin 32 pg (27-31); Mean Corpuscular Volume 97 fL (80-94); Mean Platelet Volume 7.9 fL (7.4-10.4); Nucleated Red Blood Cells % 0; Platelet Count 163 10^3/ul (150-450); Red Blood Count 4.06 10^6/ul (4.00-5.40); Red Cell Distribution Width 14 % (10.5-15); White Blood Count 14.3 10^3/ul (3.5-10.8)
[2018-01-22] MEDS: Citalopram TAB* 40 MG PO SCH (07:58)
[2018-01-22] MEDS: Montelukast Sodium TAB* 10 MG PO SCH (07:58)
[2018-01-22] MEDS: Azithromycin TAB* 250 MG PO SCH (07:58)
[2018-01-22] MEDS: Enoxaparin(*) 40 MG/0.4 ML SYR SUBCUT SCH (07:58)
[2018-01-22] MEDS: Acetaminophen TAB* 325 MG PO PRN ×2 (08:41→20:33)
[2018-01-22] MEDS: guaiFENesin ER TAB 600 MG PO PRN ×2 (08:47→20:33)
--- NOTE | 2018-01-22 16:25 | PN ---
Subjective Date of Service: 01/22/18 Interval History: With patient's approval I spoke with Dr Luna (Pulmonology) in [facility]. Per MD patient has been on oral steroids since before he came to his care due to his asthma. He reports he was also on multiple inhalers with no real improvement. Over the past [address] Luna has adjusted inhalers to better manage his asthma, treated IgE deficiency, and slowly taper down on prednisone. He reports patient has had a few episodes where he was able to be down to 10 mg daily, but then needed to increase again due to flare. He reports he missed a few recent doses of his Nucala. Patient sitting in chair on assessment. Reports mild improvement in breathing, but continues to feel tight and have chest congestion. No longer needing supplemental O2. Denies cp, palpitations, n/v/d. Objective Active Medications: Acetaminophen (Tylenol Tab*) 650 mg PO Q4H PRN PRN Reason: FEVER/PAIN Last Admin: 01/22/18 08:41 Dose: 650 mg Al Hydrox/Mg Hydrox/Simethicone (Maalox Plus*) 30 ml PO Q6H PRN PRN Reason: INDIGESTION Albuterol/Ipratropium (Duoneb (Albuterol 2.5 Mg/Ipratropium 0.5 Mg)) 1 neb INH [id number] AWAKE [facility] Last Admin: 01/22/18 13:33 Dose: 1 neb Azithromycin (Zithromax Tab*) 250 mg PO DAILY [facility] Last Admin: 01/22/18 07:58 Dose: 250 mg Citalopram Hydrobromide (Celexa Tab*) 40 mg PO DAILY [facility] Last Admin: 01/22/18 07:58 Dose: 40 mg Enoxaparin Sodium (Lovenox(*)) 40 mg SUBCUT Q24H [facility] Last Admin: 01/22/18 07:58 Dose: 40 mg Guaifenesin (Mucinex*) 600 mg PO BID PRN PRN Reason: CONGESTION Last Admin: 01/22/18 08:47 Dose: 600 mg Influenza Virus Vaccine (Fluarix *Quad* 2018-*) 0.5 ml IM .ONCE ONE Stop: 01/23/18 09:01 Methylprednisolone Sodium Succinate (Solu-Medrol 40 Mg) 40 mg IV Q8H [facility] Last Admin: 01/22/18 11:42 Dose: 40 mg Montelukast Sodium (Singulair Tab*) 10 mg PO DAILY [facility] Last Admin: 01/22/18 07:58 Dose: 10 mg Omeprazole (Prilosec Cap*) 20 mg PO DAILY PRN PRN Reason: HEARTBURN Vital Signs - 8 hr 01/22/18 01/22/18 01/22/18 09:11 12:00 13:33 Temperature 98.0 F Pulse Rate 71 68 Respiratory 18 18 16 Rate Blood Pressure 154/110 (mmHg) O2 Sat by Pulse 94 98 Oximetry Oxygen Devices in Use Now: None Appearance: NAD, comfortable, cooperative Eyes: No Scleral Icterus Ears/Nose/Mouth/Throat: Clear Oropharnyx, Mucous Membranes Moist Neck: NL Appearance and Movements; NL JVP, Trachea Midline Respiratory: Symmetrical Chest Expansion and Respiratory Effort - Wheezing heard throughout. Mild decrease in aeratoin. No consolidation Cardiovascular: NL Sounds; No Murmurs; No JVD, No Edema Abdominal: NL Sounds; No Tenderness; No Distention Lymphatic: No Cervical Adenopathy Skin: No Rash or Ulcers Neurological: Alert and Oriented x 3 Nutrition: Taking PO's Result Diagrams: 01/22/18 06:26 01/21/18 06:45 Additional Lab and Data: Laboratory Results - last 24 hr 01/22/18 06:26 WBC 14.3 H RBC 4.06 Hgb 13.0 L Hct 39 L MCV 97 H MCH 32 H MCHC 33 RDW 14 Plt Count 163 MPV 7.9 Neut % (Auto) 94.0 Lymph % (Auto) 2.3 [place] % (Auto) 3.6 Eos % (Auto) 0 Baso % (Auto) 0.1 Absolute Neuts (auto) 13.5 H Absolute Lymphs (auto) 0.3 L Absolute Monos (auto) 0.5 Absolute Eos (auto) 0 Absolute Basos (auto) 0 Absolute Nucleated RBC 0 Nucleated RBC % 0 Microbiology and Other Data: Microbiology 01/22/18 08:25 Sputum Expectorated Gram Stain - Final 01/21/18 08:15 Sputum Gram Stain - Final 01/20/18 11:45 Nasopharyngeal Influenza Types A,B Antigen - Final Specimen received for Influenza A/B Molecular testing Diagnostic Imaging: . EKG Data: . Assess/Plan/Problems-Billing Assessment: Patient presented to ED with asthma exacerbation, which started about 2 weeks ago. Hx of asthma and early COPD. Ran out of DuoNeb nebulizer. Takes 20 mg of prednisone orally daily and attempted to treat symptoms by increasing to 60 mg of prednisone, but had no without relief. - Patient Problems (1) Acute respiratory distress syndrome in adult Comment: - Patient requires hospitalization due to failing outpatient oral prednisone treatment. - Provoking factors for current asthma exacerbation include occupational exposure to dust and URI. - Slowly improving with shceduled Duonebs, Azithromax, and IV steriods. - Dr Stevens consulted and we very much appreciate her input and assisting us with this patient - Records from [place] in chart. (2) Asthma Comment: - Recurrent exacerbation possibly due to no longer treating IgE deficiency. I discussed this with patient and he agrees to resume treatment after discharge. - Has been on prednisone in varying doses for about 3 yrs. Consider TMP-SMX three times per week for prevention of PCP due to chronic prednisone and IgE Deficiency (3) IgE deficiency Comment: - Patient was receiving treatment (Nucala) with Dr Luna, but stopped as he did not believe it was helping. I discussed this with patient and he agrees to resume treatment after discharge (4) Sleep apnea Comment: - Patient reports that several years ago he was diagnosed with mild sleep apnea , but did not require treatment - Dr Stevens recommends repeat sleep study as outpatient. - I discussed repeat sleep study with patient and risks of untreated sleep apnea. Patient agrees to follow up (5) Cocaine abuse in remission Comment: - Patient report hx of cociane use about one year ago which probably exacerbated already poor lung function (6) Current non-smoker but past smoking history unknown Comment: - Previous smoker (7) Depression Comment: - Continue home medications (8) DVT prophylaxis Comment: - Continue Lovenox (9) Full code status Comment: - Full Code Status and Disposition: Inpatient. Discharge home with close follow up with pulmonology when medically stable Attending: Geetha Valencia
--- NOTE | 2018-01-22 19:33 | PN ---
Progress Note - Progress Note Date of Service: 01/22/18 - Pulm f/u note Note: Pt seen and examined at bedside, Active Medications Generic Name Dose Route Start Last Admin Trade Name Darline PRN Reason Stop Dose Admin Acetaminophen 650 mg 01/20/18 08:42 01/22/18 08:41 Tylenol Tab* PO 650 mg Q4H PRN Administration FEVER/PAIN Al Hydrox/Mg Hydrox/Simethicone 30 ml 01/20/18 08:42 Maalox Plus* PO Q6H PRN INDIGESTION Albuterol/Ipratropium 1 neb 01/20/18 19:00 01/22/18 13:33 Duoneb (Albuterol 2.5 Mg/Ipratropium 0.5 Mg) INH 1 neb [id number] AWAKE [facility] Administration Azithromycin 250 mg 01/21/18 09:00 01/22/18 07:58 Zithromax Tab* PO 250 mg DAILY [facility] Administration Citalopram Hydrobromide 40 mg 01/21/18 09:00 01/22/18 07:58 Celexa Tab* PO 40 mg DAILY [facility] Administration Enoxaparin Sodium 40 mg 01/20/18 09:00 01/22/18 07:58 Lovenox(*) SUBCUT 40 mg Q24H [facility] Administration Guaifenesin 600 mg 01/20/18 18:22 01/22/18 08:47 Mucinex* PO 600 mg BID PRN Administration CONGESTION Influenza Virus Vaccine 0.5 ml 01/23/18 09:00 Fluarix *Quad* 2018-19* IM 01/23/18 09:01 .ONCE ONE Methylprednisolone Sodium Succinate 40 mg 01/20/18 11:00 01/22/18 11:42 Solu-Medrol 40 Mg IV 40 mg Q8H [facility] Administration Montelukast Sodium 10 mg 01/21/18 09:00 01/22/18 07:58 Singulair Tab* PO 10 mg DAILY [facility] Administration Omeprazole 20 mg 01/20/18 10:14 Prilosec Cap* PO DAILY PRN HEARTBURN Vital Signs Temp Pulse Resp BP Pulse Ox 98.1 F 73 16 147/98 98 01/22/18 16:09 01/22/18 16:09 01/22/18 16:09 01/22/18 16:09 01/22/18 16:09 O/E; Pt in NAD HEENT: PERRLA, NO JVD Lungs: Exp wheeze+, diminished air entry CVS: S1, S2+, regular Abd: Obese, BS+ Ext: No edema Skin: NO rash/bruise Neuro: No focal deficits Laboratory Results - last 24 hr 01/22/18 06:26 WBC 14.3 H RBC 4.06 Hgb 13.0 L Hct 39 L MCV 97 H MCH 32 H MCHC 33 RDW 14 Plt Count 163 MPV 7.9 Neut % (Auto) 94.0 Lymph % (Auto) 2.3 [place] % (Auto) 3.6 Eos % (Auto) 0 Baso % (Auto) 0.1 Absolute Neuts (auto) 13.5 H Absolute Lymphs (auto) 0.3 L Absolute Monos (auto) 0.5 Absolute Eos (auto) 0 Absolute Basos (auto) 0 Absolute Nucleated RBC 0 Nucleated RBC % 0 42 y o morbidly obese m with h/o asthma, allergies, Hyper IgE syndrome, received infusions in past, sleep apnea not being treated currently, recurrent exacerbations on chronic prednisone therapy Pt admitted for worsening SOB after failing out pt therapy Pt improving slowly Neb treatments helpful Having trouble expectorating, mucinex would be helpful c/w abx c/w bronchodilators Will need PFTs, sl study as out pt Importance of optimal control of allergies and biologics for asthma was discussed Pts occupation also resulting in multiple triggers Wt loss counseling provided
[2018-01-23] MEDS: Albuterol/Ipratropium NEB.SOL* Albuterol 2.5 MG/Ipratropium 0.5 MG 3 ML INH SCH ×4 (01:15→19:17)
[2018-01-23] MEDS: methylPREDNISolone SOD 40 MG* 1 ML VIAL IV SCH ×2 (03:02→11:11)
[2018-01-23 07:05] LABS: ABS Basophils 0 10^3/ul (0-0.2); ABS Eosinophils 0 10^3/ul (0-0.6); ABS Lymphocytes 0.3 10^3/ul (1.0-4.8); ABS Monocytes 0.4 10^3/ul (0-0.8); ABS Neutrophils 11.1 10^3/ul (1.5-7.7); ABS Nucleated RBC 0 10^3/ul; Eosinophil % 0 %; Hematocrit 41 % (42-52); Hemoglobin 13.6 g/dl (14.0-18.0); Lymphocyte % 2.9 %; Mean Corpuscular HGB Conc 33 g/dl (31-36); Mean Corpuscular Hemoglobin 32 pg (27-31); Mean Corpuscular Volume 97 fL (80-94); Mean Platelet Volume 8.4 fL (7.4-10.4); Nucleated Red Blood Cells % 0; Platelet Count 168 10^3/ul (150-450); Red Blood Count 4.22 10^6/ul (4.00-5.40); Red Cell Distribution Width 15 % (10.5-15); White Blood Count 11.9 10^3/ul (3.5-10.8)
[2018-01-23 07:19] LABS: EGFR Non-African American 72.7 (>60)
[2018-01-23] MEDS ORDERED: Albuterol 2.5 MG/3 ML NEB.SOL* (0.083%) INH PRN (07:45)
[2018-01-23] MEDS: Enoxaparin(*) 40 MG/0.4 ML SYR SUBCUT SCH (08:56)
[2018-01-23] MEDS: Citalopram TAB* 40 MG PO SCH (08:57)
[2018-01-23] MEDS: guaiFENesin ER TAB 600 MG PO PRN (08:57)
[2018-01-23] MEDS: Montelukast Sodium TAB* 10 MG PO SCH (08:57)
[2018-01-23] MEDS: Azithromycin TAB* 250 MG PO SCH (08:57)
[2018-01-23 09:36] VITALS: BP 135/94
--- NOTE | 2018-01-23 12:51 | PN ---
Progress Note - Progress Note Date of Service: 01/23/18 - Pulm f/u note Note: Pt seen and examined at bedside, pt reports improvement in sx, is wanting to go home Active Medications Generic Name Dose Route Start Last Admin Trade Name Freq PRN Reason Stop Dose Admin Acetaminophen 650 mg 01/20/18 08:42 01/22/18 20:33 Tylenol Tab* PO 650 mg Q4H PRN Administration FEVER/PAIN Al Hydrox/Mg Hydrox/Simethicone 30 ml 01/20/18 08:42 Maalox Plus* PO Q6H PRN INDIGESTION Albuterol 2.5 mg 01/23/18 07:45 Ventolin 2.5 Mg/3 Ml Neb.Jeanie* INH Q4H PRN SOB/WHEEZING Albuterol/Ipratropium 1 neb 01/20/18 19:00 01/23/18 07:46 Duoneb (Albuterol 2.5 Mg/Ipratropium 0.5 Mg) INH 1 neb [id number] AWAKE [facility] Administration Azithromycin 250 mg 01/21/18 09:00 01/23/18 08:57 Zithromax Tab* PO 250 mg DAILY [facility] Administration Citalopram Hydrobromide 40 mg 01/21/18 09:00 01/23/18 08:57 Celexa Tab* PO 40 mg DAILY [facility] Administration Enoxaparin Sodium 40 mg 01/20/18 09:00 01/23/18 08:56 Lovenox(*) SUBCUT 40 mg Q24H [facility] Administration Guaifenesin 600 mg 01/20/18 18:22 01/23/18 08:57 Mucinex* PO 600 mg BID PRN Administration CONGESTION Methylprednisolone Sodium Succinate 40 mg 01/20/18 11:00 01/23/18 11:11 Solu-Medrol 40 Mg IV 40 mg Q8H [facility] Administration Montelukast Sodium 10 mg 01/21/18 09:00 01/23/18 08:57 Singulair Tab* PO 10 mg DAILY [facility] Administration Omeprazole 20 mg 01/20/18 10:14 Prilosec Cap* PO DAILY PRN HEARTBURN Vital Signs Temp Pulse Resp BP Pulse Ox 97.7 F 73 16 135/94 95 01/23/18 08:10 01/23/18 08:10 01/23/18 08:10 01/23/18 08:10 01/23/18 11:07 O/E; Pt in NAD HEENT: PERRLA, NO JVD Lungs: Exp wheeze+; slightly improved, diminished air entry CVS: S1, S2+, regular Abd: Obese, BS+ Ext: No edema Skin: NO rash/bruise Neuro: No focal deficits Laboratory Results - last 24 hr 01/23/18 01/23/18 06:32 06:32 WBC 11.9 H RBC 4.22 Hgb 13.6 L Hct 41 L MCV 97 H MCH 32 H MCHC 33 RDW 15 Plt Count 168 MPV 8.4 Neut % (Auto) 93.8 Lymph % (Auto) 2.9 [place] % (Auto) 3.2 Eos % (Auto) 0 Baso % (Auto) 0.1 Absolute Neuts (auto) 11.1 H Absolute Lymphs (auto) 0.3 L Absolute Monos (auto) 0.4 Absolute Eos (auto) 0 Absolute Basos (auto) 0 Absolute Nucleated RBC 0 Nucleated RBC % 0 Sodium 139 Potassium 4.5 Chloride 103 Carbon Dioxide 27 Anion Gap 9 BUN 23 Creatinine 1.10 Est GFR ( Amer) 88.0 Est GFR (Non-Af Amer) 72.7 BUN/Creatinine Ratio 20.9 H Glucose 111 H Calcium 9.3 42 y o morbidly obese m with h/o asthma, allergies, Hyper IgE syndrome, received infusions in past, sleep apnea not being treated currently, recurrent exacerbations on chronic prednisone therapy Pt admitted for worsening SOB after failing out pt therapy Pt feeling better Neb treatments helpful Having trouble expectorating, mucinex would be helpful c/w abx c/w bronchodilators Will need PFTs, sl study as out pt Importance of optimal control of allergies and biologics for asthma was discussed Pts occupation also resulting in multiple triggers Wt loss counseling provided Slow prednisone taper c/w Duoneb as out pt Had lenghthy discussion with pt and his , they had many questions that were all addressed Pt to be d/esha home today
--- NOTE | 2018-01-24 00:30 | DS ---
DISCHARGE SUMMARY: ADDENDUM: DISCHARGE MEDICATIONS: DuoNeb q.6 [id number] while awake per Dr. Stevens' s request. [id number]/[facility] #: [id number] MTDD
--- NOTE | 2018-01-24 00:54 | DS ---
CC: Dr. Geetha Valencia; Dr. Elijah Salazar; Dr. Destiney Stevens; Dr. Jason Adame. DISCHARGE SUMMARY: DATE OF ADMISSION: 01/21/18 DATE OF DISCHARGE: 01/23/18 DISCHARGE DIAGNOSES: As follows, 1. Asthma exacerbation. 2. Acute respiratory distress due to above, resolved. 3. History of IgE deficiency. 4. History of obstructive sleep apnea. DISCHARGE MEDICATIONS: As follows, 1. Azithromycin 250 mg p.o. daily for three more days to complete the 5-day treatment therapy. 2. Lexapro 20 mg p.o. daily. 3. Montelukast 10 mg p.o. daily. 4. Omeprazole 20 mg p.o. daily. 5. Albuterol nebulization 1 nebulization p.r.n. 6. Robitussin DM 10 mL p.o. t.i.d. for 3 days then p.o. q.6 p.r.n. thereafter. 7. Ibuprofen 200 mg 1 tab p.o. p.r.n. q.6. 8. Floranex 2 tabs p.o. daily for 6 more days. 9. Dulera 200/5 mcg MDI 2 puffs inhalation b.i.d. 10. Prednisone slow taper as ordered. 11. Tiotropium one cap inhalation daily. HISTORY OF PRESENT ILLNESS/HOSPITAL COURSE: The patient is an -[place] gentleman with histor y of asthma and COPD as well as IgE deficiency and SUNG who was admitted for shortness of breath that started about 2 weeks ago. Persistence of his signs and symptoms eventually leading to respiratory d istress lead to his presentation in the ED and subsequent admission. During this admission, he was s een by Dr. Stevens, who agreed with the above assessment and plan and to continue his slow prednisone taper. He was also seen by Dr. Stevens prior to his discharge and he had an ambulatory saturation nathan t prior to discharge and showed that despite this wheezing, he did not require any additional oxygen means and has ambulated well with saturation in 95 percentile while ambulating on room air. He had been advised to follow up and recall his PCP within 3 days post discharge and to follow up wit h his high risk case manager and he was advised to call to make/confirm his appointment. He was advised that if his resume or develop new ones or feel unwell for any reason, to call his PCP first. If his PCP c annot entertain him due to scheduling issues alone to call [facility] if the issue is consid ered nonemergent. He was advised to call my office regarding any questions, concerns or further clar ifications regarding his discharge plans and/or prescriptions and to take his medications as prescrib ed. On review of systems, the patient currently denies any current headaches, dizziness, fevers, chills, nausea, vomiting, chest pain, shortness of breath, increased cough. No sputum production, abdominal pain, diarrhea, constipation, pain and/or increased frequency on urination, myalgias, arthralgias, th roat pain or new skin lesions. The rest of the 14-point review of systems are otherwise unremarkable . PHYSICAL EXAMINATION: Reveals a most recent vital signs of records with blood pressure of 135/94, 97 .7 degrees Fahrenheit, 73 beats per minute of heart rate, 16 per minute respiratory rate, saturating at 95% on room air. General Appearance: The patient is awake, alert, and oriented x3; not in acute d istress. HEENT: Normocephalic and atraumatic. PERRLA. Extraocular muscles intact. Negative for ic terus, moist oral mucosa, negative throat erythema. Neck is soft and supple with no cervical lymphad enopathy, difficult to assess JVD given patient is obese. Heart: S1 and S2 within normal limits. Re gular rate and rhythm. No murmurs, rubs, or gallops. Chest: Clear to auscultation bilaterally. Go od air entry. No wheezes, rales, or rhonchi. Abdomen is soft, nondistended, nontender. Normoactive bowel sounds x4 quadrants. Extremities: No cyanosis, clubbing, or edema. Psychiatric: No active p sychosis, depression, suicidal or homicidal ideation. Skin is warm to touch. TIME SPENT: The total time spent evaluating the patient, reviewing pertinent data, and appropriate d ocumentation is 50 minutes. [id number]/[facility] #: [id number]
== END 2018-01-23 15:00 | disposition home or self-care (01) | DRG 141 ==
LOC: ED 05:44 → MEDTELE 08:42 → OBSVTOIN 01-21 15:53
PROVIDERS: ADMIT Internal Medicine; ATTEND Student in an Organized Health Care Education/Training Program
DX: J45.901 Unspecified asthma with (acute) exacerbation (principal); D80.8 Other immunodeficiencies with predominantly antibody defects; R06.03 Acute respiratory distress; E66.01 Morbid (severe) obesity due to excess calories; J44.9 Chronic obstructive pulmonary disease, unspecified; F32.9 Major depressive disorder, single episode, unspecified; G47.33 Obstructive sleep apnea (adult) (pediatric); F14.21 Cocaine dependence, in remission; Z79.51 Long term (current) use of inhaled steroids; Z79.52 Long term (current) use of systemic steroids; Z79.899 Other long term (current) drug therapy; Z87.891 Personal history of nicotine dependence; Z68.37 Body mass index [BMI] 37.0-37.9, adult
CPT/HCPCS: 36415; 71046; 80048; 80053; 82803; 83605; 85025; 85610; 85730; 87070; 87077; 87205; 90686; 94640; 99282; A9270-GY; G0378; J0456; J1650; J2920; J2930; J3475

== ENCOUNTER 2018-03-05 09:09 | Day surgery (SDC) | payer BC, OTHER ==
[~2018-03-05 09:09] MED LIST: Buffered Lidocaine 0.9% SYRIN* 5 ML/SYR SYRINGE INTRADERM ONE; Dexamethasone IV* 4 MG/ML 1 ML (4 MG) IV SLOW PU ONE; Famotidine IV* 10 MG/ML 2 ML (20 mg) IV ONE; Lactated Ringers 1000 ML Bag* 1,000 ML IV SCH
[2018-03-05] MEDS ORDERED: ceFAZolin 2 GM PREMIX in ORs 2 GM/50 ML BAG IVPB ONE (09:28)
[2018-03-05] MEDS ORDERED: Famotidine IV* 10 MG/ML 2 ML (20 mg) ONE (09:28)
[2018-03-05] MEDS ORDERED: Dexamethasone IV* 4 MG/ML 1 ML (4 MG) ONE (09:28)
[2018-03-05] MEDS ORDERED: Propofol* 10 MG/ML 20 ML BTL ONE (10:01)
[2018-03-05] MEDS ORDERED: Rocuronium* 10 MG/ML VIAL ONE (10:01)
[2018-03-05] MEDS ORDERED: fentaNYL* 50 MCG/ML 2 ML VIAL (100 MCG VIAL) ONE ×3 (10:01→14:33)
[2018-03-05] MEDS ORDERED: Lidocaine 2% PF * 5 ML VIAL ONE (10:01)
[2018-03-05] MEDS ORDERED: HYDROmorphone INJ1* 1 MG/ML SYRINGE ONE ×2 (10:01→14:12)
[2018-03-05] MEDS ORDERED: Midazolam* 1 MG/ML 2 ML VIAL (2 MG) ONE (10:01)
[2018-03-05] MEDS ORDERED: Succinylcholine* 20 MG/ML 10 ML VIAL ONE (10:02)
[2018-03-05] MEDS ORDERED: EPINEPHRINE 1 MG/ML 1 ML VIAL ONE (10:47)
[2018-03-05] MEDS ORDERED: Levalbuterol 0.63MG/3ML NEB* UNIT OF USE INH ONE ×2 (10:47→10:48)
[2018-03-05] MEDS ORDERED: Bupivacaine 0.5% W/EPI SDV* 30 ML VIAL ONE (10:47)
[2018-03-05] MEDS ORDERED: EPHEDrine (Pressors)* 50 MG/ML VIAL ONE (11:38)
[2018-03-05] MEDS ORDERED: Acetaminophen IV 1GM/100ML * 1,000 MG/100 ML VIAL IVPB ONE (11:56)
[2018-03-05] MEDS ORDERED: PROCHLORPERAZINE INJ 5 MG/ML 2 ML VIAL IV PRN (11:56)
[2018-03-05] MEDS ORDERED: oxyCODONE TAB* 5 MG TAB PO PRN (11:56)
[2018-03-05] MEDS ORDERED: fentaNYL* 50 MCG/ML 2 ML VIAL (100 MCG VIAL) IV PRN (11:56)
[2018-03-05] MEDS ORDERED: DiMENhydriNATE IV* 50 MG/ML VIAL IV PUSH PRN (11:56)
[2018-03-05] MEDS ORDERED: Naloxone* 0.4 MG/ML 1 ML VIAL IV PRN (11:56)
[2018-03-05] MEDS ORDERED: Ondansetron INJ* 2 MG/ML VIAL ONE (13:41)
[2018-03-05] MEDS ORDERED: Acetaminophen IV 1GM/100ML * 100 ML ONE (14:12)
[2018-03-05] MEDS: HYDROmorphone INJ1* 1 MG/ML SYRINGE IV PRN ×2 (14:13→14:24)
[2018-03-05] MEDS ORDERED: oxyCODONE TAB* 5 MG TAB ONE (14:37)
[2018-03-05 16:11] VITALS: BP 133/91
--- NOTE | 2018-03-07 03:31 | OP ---
OPERATIVE REPORT: DATE OF OPERATION: 03/05/18 DATE OF : 71 SURGEON: Graham Chavez MD. PATTERN STORAGE CLERK: JAMES Mitchell. A physician physician assistant psychiatry was required for the length of procedure for assistance with positioning, instrumentation, retraction, and closure. ANESTHESIOLOGIST: "Dr. Clive Haddad." ANESTHESIA: General anesthesia, local anesthesia consisting of approximately 30 cc of 0.5% Marcaine with epinephrine. PRE-OP DIAGNOSES: 1. Right shoulder rotator cuff tendon tear, supraspinatus, possible infraspinatus. 2. Right shoulder subacromial impingement and bursitis. 3. Right shoulder AC joint osteoarthritis. 4. Right shoulder likely proximal biceps tendon tear. POST-OP DIAGNOSES: 1. Right shoulder rotator cuff tendon tear, supraspinatus and infraspinatus, U - shaped with retraction. 2. Right shoulder subacromial impingement and bursitis. 3. Right shoulder AC joint osteoarthritis. 4. Right shoulder spontaneous proximal biceps tendon rupture with stump remaining OPERATIVE PROCEDURE: 1. Right shoulder arthroscopic rotator cuff tendon repair, supraspinatus, infraspinatus. 2. Modifier 22 given the complex nature of the procedure. I performed a complex repair involving 2 side to side stitches followed by a double row of 3- anchor repair of this rotated cuff tendon tear. 3. Right shoulder arthroscopic subacromial decompression. 4. Right shoulder arthroscopic distal clavicle resection. 5. Right shoulder arthroscopic debridement of stump of long head of biceps tendon. IV FLUIDS: See anesthesia note. ANTIBIOTICS: Ancef 2 g IV. SKIN TO SKIN TIME: 110 minutes. ARTHROSCOPY FLUID UTILIZED: 14 bags each with 3 L for a total of 42 L. SPECIMEN: None. IMPLANTS: Two FiberWire #2 sutures, Arthrex rotator cuff tendon anchors, 5.5 mm , each doubly loaded with suture tape, x2. Arthrex lateral row knotless rotator cuff tendon anchor, approximately 5.5 mm. COMPLICATIONS: None. ESTIMATED BLOOD LOSS: Minimal. 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 He was seen by Dr. Sunshine and referred to my office. MRI demonstrated rotator cuff tendon tear. Workers compensation approved the surgery. The patient responded insufficiently to nonoperative management and he opted for surgical procedure. DESCRIPTION OF PROCEDURE: The patient signed a written consent in preoperative holding. Operative extremity was marked in preoperative holding. Anesthesia opted not to do a interscalene regional nerve block because of the patient's history of COPD and their concern that if the patient have a paralyzed , hypo-functional val diaphragm as a result of a nerve block, he might have respiratory distress perioperatively. I accepted this. The patient was taken to the operating room and placed supine on operating room table. Sedated and intubated. The patient was transferred into lateral decubitus position with the right shoulder up. Axillary roll. Bony prominences padded. Shoulder in the appropriate amount of longitudinal traction, 15 pounds appropriate amount of forward flexion and abduction. Right shoulder was prepped and draped. Surgical timeout performed. I entered the shoulder with a spinal needle and infused 30 cc of normal saline. I established a posterior glenohumeral joint portal. I commenced diagnostic arthroscopy. Clear large rotator cuff tear, evidenced superiorly. No subscapularis tear. No significant articular cartilage injury. There was visible a stump of the longheaded biceps. I established an anterior glenohumeral joint portal under direct visualization and debrided this long head of biceps stump remaining in case it was a pain generator. I removed my instrument and placed cannula in the subacromial space. I made a lateral portal and then posterior lateral portal under direct visualization. I debrided the subacromial bursa with an arthroscopic shaver. I evaluated the rotator cuff tear from posterior, posterolateral, and lateral portals. It was clear that this was a U-shaped rather than a crescent shaped tear. It was under some significant tension, not easily brought out to length. I freed up the tissues around the rotator cuff tendon. I noted the infraspinatus component of the tendon to be slightly thin, but intact. It appeared tendinotic as well. I established the appropriate plastic cannulas. Using an Arthrex suture passer , I placed 2 side by side stitches, simple, in the rotator cuff tendon tear. I tied these. These essentially converted a U-shaped tear to a crescent shaped tear. I was able to bring rotator cuff tendon to footprint. Although, it was under the slightest bit of tension. I was able to bring it to the medial aspect of the footprint on the greater tuberosity. Should be mentioned that prior to starting the rotator cuff repair, I had performed a subacromial decompression with arthroscopic liu removing a significant hook to the anterior aspect of the acromion. This opened up the subacromial space nicely. I had also debrided the greater tuberosity footprint with the vapor shaver and then an arthroscopic liu to encourage healing. After having converted the rotator cuff tear into a crescent shape, I placed superolateral poke holes and placed 2 anchors, medial row, about the medial aspect of the footprint. Each was doubly loaded with suture tape. I next used an antegrade Arthrex passer to pass the tape and placed horizontal mattress stitches. I placed all sutures before tying the stitches. The posterior stitch of the anterior suture Pilger and the anterior stitch from the posterior suture anchor crossed the longitudinal tear in the rotator cuff. The other stitches were on one or the other side of the longitudinal tear. I next used suture tape from the medial row and placed it into a lateral row anchor from Arthrex. I liked the repair stability by probing and movement of the arm. I next moved to the AC joint. I debrided synovitic tissue with a Vapr and then removed the distal end of the clavicle at least 8 mm with an arthroscopic liu. I removed instruments and fluid from the shoulder and skin incisions closed with figure of eight and 12 stitches using nylon 3.0 suture. I placed local anesthetic, 30 cc of Marcaine 0.5% with epinephrine in the subcutaneous tissues about the shoulder. Xeroform, 4x4s, ABDs, and foam tape. Sling with abduction pillow. Patient was awakened and taken to the PACU. DISPOSITION: The patient was given wound care instructions. Oxycodone as needed for pain control, Keflex, for a short course for infection prophylaxis, and aspirin for 2 weeks for DVT prophylaxis. The patient will present in 10 to 14 days postoperatively for a wound check and removal of stitches. For physical therapy, allow the patient to be on early in his course just for some sling education, but I will hold off on passive range of motion until 6 weeks. [id number]/[facility] #: [id number] KIANNA
== END 2018-03-05 16:14 | disposition home or self-care (01) ==
LOC: OR 09:09
PROVIDERS: ATTEND Orthopaedic Surgery
DX: S46.011A Strain of muscle(s) and tendon(s) of the rotator cuff of right shoulder, initial encounter (principal); S46.111A Strain of muscle, fascia and tendon of long head of biceps, right arm, initial encounter; M75.41 Impingement syndrome of right shoulder; M19.011 Primary osteoarthritis, right shoulder; M75.51 Bursitis of right shoulder; X50.0XXA Overexertion from strenuous movement or load, initial encounter; Y93.89 Activity, other specified; Y92.89 Other specified places as the place of occurrence of the external cause; Y99.0 Civilian activity done for income or pay; J44.9 Chronic obstructive pulmonary disease, unspecified; K21.9 Gastro-esophageal reflux disease without esophagitis; Z72.0 Tobacco use; G47.33 Obstructive sleep apnea (adult) (pediatric); F41.8 Other specified anxiety disorders
CPT/HCPCS: A9270-GY; C1713; J0330; J0690; J1100; J1170; J2250; J2405; J2704; J3010

== ENCOUNTER → 2018-11-19 05:46 | Day surgery (SDC) | payer OTHER ==
[~2018-11-19 05:46] MED LIST changes: -Buffered Lidocaine 0.9% SYRIN* 5 ML/SYR SYRINGE INTRADERM ONE; +Buffered Lidocaine 1% SYRIN* 1 ML/SYRINGE INTRADERM ONE; +Bupivacaine 0.25% EPI 200,000* 30 ML SDV ONE; -Dexamethasone IV* 4 MG/ML 1 ML (4 MG) IV SLOW PU ONE; +DiMENhydriNATE IV* 50 MG/ML VIAL IV PUSH PRN; +EPHEDrine (Pressors)* 50 MG/ML VIAL ONE; +EPINEPHRINE 1 MG/ML 1 ML VIAL ONE; -Famotidine IV* 10 MG/ML 2 ML (20 mg) IV ONE; +HYDROmorphone INJ1* 1 MG/ML SYRINGE ONE; +Hydrocortisone INJ* 100 MG VIAL IV ONE; +Hydrocortisone INJ* 100 MG VIAL ONE; +Hydrocortisone INJ* 250 MG VIAL IV ONE; +Levalbuterol 1.25MG/0.5ML NEB INH ONE; +Levalbuterol 1.25MG/0.5ML NEB ONE; +Levalbuterol HFA INHALER* 1 PUFF MDI ONE; +Lidocaine 1% w EPI 1:200,000* SDV 30 ML VIAL ONE; +Lidocaine 2% PF * 5 ML VIAL ONE; +Lidocaine 2% w/ EPI 1:200,000* 20 ML SDV VIAL ONE; +Midazolam* 1 MG/ML 5 ML VIAL (5 MG) ONE; +Naloxone* 0.4 MG/ML 1 ML VIAL IV PRN; +Ondansetron INJ* 2 MG/ML VIAL IV PRN; +Ondansetron INJ* 2 MG/ML VIAL ONE; +Propofol* 10 MG/ML 20 ML BTL ONE; +Rocuronium* 10 MG/ML VIAL ONE; +Scopolamine 1.5 mg* PATCH TRANSDERM PRN; +Sugammadex * 200 MG/2 ML VIAL IV PUSH ONE; +ceFAZolin 1 GM ADVAN(*) 1 GM ADDV.VIAL IVPB ONE; +ceFAZolin 2 GM PREMIX in ORs 2 GM/50 ML BAG ONE; +fentaNYL* 50 MCG/ML 2 ML VIAL (100 MCG VIAL) ONE; +fentaNYL* 50 MCG/ML 5 ML VIAL (250 MCG VIAL) ONE; +hydrALAZINE IV* 20 MG/ML VIAL ONE; +oxyCODONE/Acetamin 5/325 MG* TAB ONE; +oxyCODONE/Acetamin 5/325 MG* TAB PO PRN
[2018-11-19] MEDS: HYDROmorphone INJ1* 1 MG/ML SYRINGE IV PRN ×2 (13:34→13:44)
[2018-11-19] MEDS: fentaNYL* 50 MCG/ML 2 ML VIAL (100 MCG VIAL) IV PRN ×2 (14:03→14:13)
[2018-11-19 14:27] VITALS: BP 133/113
--- NOTE | 2018-11-22 00:37 | OP ---
DATE OF OPERATION: 11/19/18 - [facility] DATE OF : 71 SURGEON: Dr. Graham Chavez. RESIDENTIAL ELECTRICIAN: JAMES No. A physician home health assistant was required for the length of the procedure for assistance with patient positioning, instrumentation , and closure. ANESTHESIOLOGIST: Dr. Lo. ANESTHESIA: General anesthesia, local anesthesia using 60 cc of Marcaine 0.25% with epinephrine. PRE-OP DIAGNOSES: 1. Right shoulder rotator cuff tendon retear, supraspinatus, infraspinatus. 2. Status post right shoulder arthroscopic rotator cuff tendon repair, supraspinatus, infraspinatus, subacromial decompression, distal clavicle resection, 03/05/18. POST-OP DIAGNOSES: 1. Right shoulder rotator cuff tendon retear, supraspinatus, infraspinatus. 2. Status post right shoulder arthroscopic rotator cuff tendon repair, supraspinatus, infraspinatus, subacromial decompression, distal clavicle resection, 03/05/18. OPERATIVE PROCEDURE: 1. Right shoulder arthroscopic revision rotator cuff tendon repair, supraspinatus, infraspinatus, large, retracted tear, with 6 anchors, double row fixation construct, and Regeneten biologic patch. 2. Modifier 22 for unusual or complex procedure. This was a complex procedure due to it being a revision procedure as well given the large and very retracted size of the tear. This required a significant amount of debridement and mobilization of tissue and planning of repair such that a repair with the least tension could be produced. As well, six anchors, a large fixation construct, was utilized as well as a biologic patch to aid in healing. 3. Right shoulder arthroscopic extensive debridement, required to debride components of the prior primary retear cuff tendon repair, aggressive subacromial bursectomy and mobilization of rotator cuff tendons. ANTIBIOTICS: Ancef 3 g IV. IV FLUIDS: 1000 cc crystalloid. [id number]-LV-[id number] TIME: 177 minutes. SPECIMEN: None. IMPLANTS: Arthrex suture anchors x6. For the medial row, I used 3 corkscrew anchors, 5.5 mm in size from Arthrex, each doubly loaded with suture tape. I also used a 4.75 mm Arthrex corkscrew anchor double loaded with suture tape. For the lateral row, I used 2 swivel lock suture anchors. Fowler and Nephew Regeneten biologic patch, size large. COMPLICATIONS: None. ESTIMATED BLOOD LOSS: Minimal. 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 The patient had injured himself on 11/24/17. MRI demonstrated a large rotator cuff tendon tear and the patient underwent uneventful surgery on . The patient was doing well initially postoperatively. Some point in the postoperative course, he noted a weakness. I believe that the patient followed the sling rules, time appropriately. Physical therapy was not started until at least 6 or 8 weeks postoperatively. Physical therapist had my rotator cuff protocol. Range of motion may have been sought a little too aggressively by physical therapy but is difficult to know. I think the main reason for the failure of the first operation was the patient's chronic corticosteroid utilization. The patient is a former smoker who stopped 2 years ago. He describes it sometimes as asthma, but the patient clearly has COPD and sees a global climate change researcher chronically for it. The patient for the last 5 years reports waxing and waning symptoms of respiratory problems with intermittent hospitalization. In the last several months, he was hospitalized for this and placed on prednisone 60 mg by mouth daily that he was on at his 11/04/18 clinic visit preoperatively. His baseline is at prednisone 15 mg by mouth daily. Certainly, the high level cortisone can inhibit the appropriate healing response. MRI had shown retear. The patient's preoperative examination was worrisome with a lag to 0 degrees of external rotation and even a Hornblower's of 20 degrees falling forward. Given the patient's young age, certainly a rotator cuff repair, revision was worthwhile but I had concerns given the chronic steroid use that the patient would not be able to heal this especially a large retracted tear. Our plan going into the surgery would be if the supraspinatus and infraspinatus were repairable, I would repair both. If the infraspinatus was repairable but not the supraspinatus, I would proceed forward with a superior capsular repair. If neither of the tendons were repairable, I would perform a debridement and that is it. My goal if it all possible was to perform a repair of the patient' s tendon themselves given the patient's young age. However, given the retraction of the tendons and the amount of fatty atrophy and the patient's chronic steroid use, I certainly could not guarantee the repairability of the rotator cuff tendon. We discussed all of this. Discussed potential risks and complications of the procedure including, certainly a possibility of rotator cuff lack of healing or retear. DESCRIPTION OF PROCEDURE: In the preoperative holding, the patient signed a written consent. Operative extremity was marked in preoperative holding. Anesthesia, first meeting the patient in preoperative holding, had concerns about the patient's respiratory function. A nebulizer treatment was provided. The patient was breathing better and we decided to move forward with the procedure. We held off on an interscalene nerve block given the patient's respiratory poor function, with concerns about postoperative respiratory function in the setting of a regional nerve block. The patient was taken back to the operating room and placed supine on the operating room table. Sedated and intubated. The patient was placed in the lateral decubitus position with the right shoulder up. Axillary roll placed. All bony prominences padded. Beanbag hardened. Right shoulder was placed in the appropriate amount of forward flexion and abduction with longitudinal traction of 15 pounds. Right shoulder was prepped and draped. Formal surgical time-out performed. Inserted a spinal needle into the glenohumeral joint from posterior. I inserted 30 cc of normal saline. I next established a posterior glenohumeral joint portal. Started my diagnostic arthroscopy. The patient had some soft tissue about the glenohumeral joint that at first I thought could conceivably be articular cartilage, but then it appeared not to be. This is likely soft tissue from subacromial. I established an anterior glenohumeral joint portal under direct visualization. I entered this with my arthroscopic shaver. The patient had grade 1 damage to the articular cartilage on the humeral head and glenoid sides, but no high-grade articular cartilage injury. Perhaps there was also some grade 2 areas of articular cartilage damage. The subscapularis tendon was intact. A clear large supraspinatus and infraspinatus tear was visible. I next moved to the subacromial space with my anterior and posterior portals. I established lateral and posterolateral portals under direct visualization. Clear retracted rotator cuff tendon tears. Looking at the humeral head, the medial and lateral anchors from my first procedure were intact and the rotator cuff tendon tissue between those anchors was still on the humeral head. Therefore, it was clear that the tendon re-tore not at its original end but rather just medial to the medial row anchors. I introduced an arthroscopic shaver and debrided subacromial bursitis tissue. I also debrided sutures from the primary repair. I got a better look at the shape of the torn tendon. I placed multiple traction stitches in the tendon, supraspinatus and infraspinatus in a variety of positions to try to figure out the best way to repair the tendon. With the tendon on some traction, I used a switching stick and an arthroscopic shaver to debride a lot of scar tissue inferior and superior to the tendons. I was able to visualize well the scapular spine. I should note that the anteriormost aspect of the supraspinatus was intact to bone. The tear involved the supraspinatus and the superior most aspect of the infraspinatus. It did not involve the full width of the infraspinatus, although the infraspinatus tendon and muscle did not seem particularly robust. It appeared as though the infraspinatus inferior to the split could be mobilized and moved more superiorly and reattached more stoutly to bone. Seemed as though the inferior 75% of the infraspinatus might have some undersurface tearing. Therefore, my first anchor I placed along the medial footprint all the way at the posterior end of the exposed humeral head tuberosity. I used an antegrade suture passer to place 2 horizontal mattress stitches into the infraspinatus tendon. By doing this, I increased the footprint of infraspinatus tendon to bone contact and I superiorized that tendon as well. I tied as I went these 2 stitches. This successfully superiorized slightly the intact grossly infraspinatus tendon. At this point, I needed to decide whether I was doing superior capsular repair or a primary rotator cuff tendon repair. Up to this point, I vacillated back and forth. It seemed as though the advancement slightly of the infraspinatus tendon was improving the amount of excursion of the supraspinatus tendon head allowing for a better reduction of tissue to bone. As the case went along, the excursion of tendon to bone continued to improve. At this point, with tension, I was able to bring tendon to bone. Therefore, I decided to try for a primary rotator cuff tendon repair. At this point, the supraspinatus and part of the infraspinatus essentially consisted of an L-shaped tear. I wanted to start repairing the anteriormost edge of the supraspinatus working my way posterior and to see how well this brought tendon to bone. I placed a 5.5 mm double length suture anchor, corkscrew in the anterior most aspect of the medial aspect of the supraspinatus footprint. Using an antegrade suture passer, I took big bites and tied as I went, tying 2 horizontal mattress stitches with suture tape. This brought tendon to bone with some extra tendon lateral to the medial row anchor, available for double row fixation. I next placed another, a third medial row suture anchor 5.5 mm more posterior to the second anchor and again placed horizontal mattress stitches using suture tape. These were tied. Prior to tying my stitches from the second anchor, I went ahead and placed my third anchor, a 4.75 mm double loaded suture tape corkscrew anchor. I placed this anchor at the posterior corner of the repaired main flap of tendon, at the corner of the L- shaped tear. I next tied the sutures from my third anchor. As I went along, I made sure that the repair was continuing to be anatomic and would bring nice cuff of tissue to bone. As the second and third anchors had their suture tape tied, the L-shaped tear was reduced perfectly onto bone and the longitudinal fissure between rotator cuff tendon, was closed. This looked excellent. I next took my suture tape from the third anchor. With these sutures, I created simple stitches between the anterior flap and the posterior flap, essentially using these to close down the longitudinal fissure between rotator cuff tendon. I tied these. After my medial row had been completed, I had a nice tendon opposition to rotator cuff tendon footprint with some extra tissue laterally. It was certainly under tension. When I rotated the humerus, the repair looked very stable. I next cleared off some tissue laterally and placed my lateral row anchors, 2 swivel locks, each with 4 suture tapes from the medial row. This created an excellent compression of rotator cuff tissue against bone. Certainly, this was a very stable repair to probing and to movement of the humerus. This was really the best case scenario with all the torn tendon apposed to bone. Given the patient's chronic oral steroid use and failure of his first surgery, I decided to place a patch next. I placed the Regeneten Fowler and Nephew biologic patch, size large over the repair. I fixed it in place with a PLLA bioabsorbable kelle as well as 1 bone staple. It was very stable to movement of the humerus. Instruments and fluid removed from the subacromial space. I should mention also that I created an anterolateral portal for working and I created superolateral small incisions to place my rotator cuff tendon anchors and to place my kelle for the Regeneten biologic patch. Skin incisions were closed with [id number] in 12 stitches using nylon 3-0 suture. Local anesthesia was placed subcutaneously and in the subacromial space consisting of 60 cc of Marcaine 0.25% with epinephrine. Xeroform, 4x4s, ABDs, foam tape, sling and abduction pillow. The patient was awakened, extubated, and brought to the PACU. DISPOSITION: The patient was discharged home with wound care instructions. Percocet as needed for pain control, Keflex, short course for infection prophylaxis. The patient will follow up with me in 10 to 14 days postoperatively. Sling at all times, daytime and nighttime. The patient will be in a sling for 8 weeks postoperative and will not start physical therapy for 8 weeks postoperative. When he does start physical therapy, it will be with a very slow advance of activity. With his current biological environment, he needs every advantage to get this tendon to heal. It should be noted that the patient preoperatively was given the opportunity to take care of all of his respiratory problems and perhaps try a new treatment and perhaps drop his oral chronic cortisone dosage but he deferred on this given his desire to get back to work and he is stating that he currently is at his baseline respiratory bunch for the last 4 to 5 years. [id number]/[facility] [place] #: [id number] KIANNA
== END | disposition home or self-care (01) ==
LOC: OR 05:46
PROVIDERS: ATTEND Orthopaedic Surgery
DX: S46.011D Strain of muscle(s) and tendon(s) of the rotator cuff of right shoulder, subsequent encounter (principal); S46.111D Strain of muscle, fascia and tendon of long head of biceps, right arm, subsequent encounter; M75.51 Bursitis of right shoulder; M19.011 Primary osteoarthritis, right shoulder; J44.9 Chronic obstructive pulmonary disease, unspecified; Z79.52 Long term (current) use of systemic steroids; J45.909 Unspecified asthma, uncomplicated; K21.9 Gastro-esophageal reflux disease without esophagitis; F41.9 Anxiety disorder, unspecified; M10.9 Gout, unspecified; Z72.0 Tobacco use; X58.XXXD Exposure to other specified factors, subsequent encounter; Y92.9 Unspecified place or not applicable
CPT/HCPCS: A9270-GY; C1713; J0360; J0690; J1170; J1720; J2001; J2250; J2405; J2704; J3010

== ENCOUNTER 2023-10-02 14:55 | Inpatient (IN) ==
[2023-10-02 16:50] LABS: Urine Appearance Clear; Urine Bilirubin Negative (Negative); Urine Blood Negative (Negative); Urine Color Yellow; Urine Glucose Negative (Negative); Urine Ketones Negative (Negative); Urine Nitrite Negative (Negative); Urine Protein 1+ (>=30 mg/dL) (Negative); Urine Specific Gravity 1.029 (1.002-1.030); Urine Urobilinogen Negative (Negative)
[2023-10-02] MEDS: Ondansetron 4 mg VIAL 2 MG/ML 2 ml VIAL IV ONE (16:50)
[2023-10-02] MEDS: Lactated Ringers 1000 ml BAG 1,000 ML IV ONE ×2 (16:50→21:43)
[2023-10-02 17:03] LABS: Urine Bacteria Absent /HPF (Absent); Urine Red Blood Cell Trace(0-2/hpf) /HPF (0-Trace); Urine Squamous Epithelial Cell Present /HPF (Absent); Urine White Blood Cell Trace(0-5/hpf) /HPF (0-Trace)
[2023-10-02 17:12] LABS: ABS Lymphocytes 0.8 10^3/uL (1.0-4.8); ABS Monocytes 1.1 10^3/uL (0.0-1.1); ABS Neutrophils 16.3 10^3/uL (1.5-7.6); Eosinophil % 0.1 %; Hematocrit 43.3 % (38-53); Hemoglobin 14.8 g/dL (13.2-16.3); Lymphocyte % 4.4 %; Mean Corpuscular Hgb Conc 34.3 g/dL (31-36); Mean Corpuscular Volume 96.2 fL (80-97); Mean Platelet Volume 7.5 fL (7.5-11.2); Platelet Count 270 10^3/uL (150-450); Red Cell Distribution Width 13.3 % (12-17); White Blood Count 18.2 10^3/uL (3.6-10.2)
[2023-10-02 18:30] LABS: ALT 40 U/L (7-52); Albumin 4.2 g/dL (3.2-5.2); Albumin/Globulin Ratio 1.4 (1-3); Alkaline Phosphatase 102 U/L (35-149); Blood Urea Nitrogen 13 mg/dL (6-24); C Reactive Protein 311.17 mg/L (<8.01); CO2 Carbon Dioxide 24 mmol/L (22-32); Calcium 9.4 mg/dL (8.6-10.3); Chloride 95 mmol/L (101-111); Creatinine, Serum 1.17 mg/dL (0.67-1.17); Glucose 86 mg/dL (70-100); Sodium 133 mmol/L (135-145); Total Bilirubin 0.8 mg/dL (0.2-1.0); Total Protein 7.2 g/dL (6.4-8.9); eGFR CKD-EPI 76.4 (>60)
[2023-10-02 18:45] LABS: Anion Gap 14 mmol/L (2-16)
[2023-10-02 19:01] LABS: Urine Appearance Clear; Urine Bilirubin Negative (Negative); Urine Blood Negative (Negative); Urine Color Light-Yellow; Urine Glucose Negative (Negative); Urine Ketones Negative (Negative); Urine Nitrite Negative (Negative); Urine Protein Negative (Negative); Urine Specific Gravity 1.012 (1.002-1.030); Urine Urobilinogen Negative (Negative); Urine pH 6.5 (5.0-8.0)
[2023-10-02 19:11] LABS: Creatine Kinase 215 U/L (10-223)
[2023-10-02] MEDS: Iohexol 350 (CONTRAST) 500 ML MDV IV ONE (19:25)
[2023-10-02] MEDS: Acetaminophen IV 1 GM/100ML 1,000 MG/100 ML BAG IV ONE (20:04)
[2023-10-02] MEDS: Morphine 4 MG/ML VIAL (1 ml) IV ONE (20:04)
[2023-10-02] MEDS: Gadoteridol (CONTRAST) 279.3 MG/ML 10 ML IV ONE (21:40)
[2023-10-02 22:49] LABS: Potassium Redraw 4.1 mmol/L (3.5-5.0)
[2023-10-03] MEDS: Cefepime 2 GM in Dextrose 2 GM/50 ML BAG IV ONE
[2023-10-03] MEDS ORDERED: Vancomycin 1,750 MG in NS 0.9% 250 ml 250 ML IVPB ONE (00:34)
[2023-10-03] MEDS: metroNIDAZOLE IV 500 MG/100ML 500 MG/100 ML BAG IVPB ONE (01:26)
[2023-10-03] MEDS: Vancomycin 1,750 MG in NS 0.9% 500 ml BAG 500 ML IVPB ONE (02:29)
[2023-10-03] MEDS: Morphine 2 MG/ML SYRINGE IV PRN (02:53)
[2023-10-03] MEDS: Thiamine 100 MG/ML 2 ml VIAL (200 mg) IM ONE (02:58)
[2023-10-03] MEDS: Multivitamins/Minerals TAB PO SCH (02:58)
[2023-10-03] MEDS ORDERED: Albuterol 2.5mg/3 ml (0.083%) NEB.SOLN INH PRN (04:04)
[2023-10-03] MEDS: Mometasone/Formoter 200/5 MDI INH SCH (06:51)
[2023-10-03] MEDS: cefTRIAXone 1 gm/50 mL D5W 1 GM/50 ML BAG IV SCH (08:25)
[2023-10-03 09:45] LABS: ABS Basophils 0.1 10^3/uL (0.0-0.1); ABS Eosinophils 0.1 10^3/uL (0.0-0.5); ABS Lymphocytes 0.8 10^3/uL (1.0-4.8); ABS Monocytes 0.9 10^3/uL (0.0-1.1); ABS Neutrophils 11.9 10^3/uL (1.5-7.6); Eosinophil % 0.4 %; Hematocrit 38.8 % (38-53); Mean Corpuscular Hemoglobin 31.9 pg (27-33); Mean Corpuscular Hgb Conc 33.4 g/dL (31-36); Mean Corpuscular Volume 95.4 fL (80-97); Mean Platelet Volume 7.3 fL (7.5-11.2); Platelet Count 240 10^3/uL (150-450); Red Blood Count 4.07 10^6/uL (4.06-5.63); Red Cell Distribution Width 13.4 % (12-17); White Blood Count 13.7 10^3/uL (3.6-10.2)
[2023-10-03] MEDS: metroNIDAZOLE IV 500 MG/100ML 500 MG/100 ML BAG IVPB SCH (10:17)
[2023-10-03 10:27] LABS: Calcium 8.6 mg/dL (8.6-10.3); Creatinine, Serum 1.13 mg/dL (0.67-1.17); Potassium 4.1 mmol/L (3.5-5.0); eGFR CKD-EPI 79.7 (>60)
[2023-10-03] MEDS: ceFAZolin 2 GM PREMIX 2 GM/50 ML BAG IV SCH (14:24)
[2023-10-03] MEDS ORDERED: Polyethylene Glycol 3350 17 GM PACKET PO PRN (18:42)
[2023-10-03] MEDS ORDERED: Senna TAB 8.6 mg TAB PO PRN (18:42)
[2023-10-03] MEDS ORDERED: Magnesium Hydroxide LIQ 30 ML UDC PO PRN (18:42)
[2023-10-03 21:07] LABS: High Sensitivity Troponin 1 Hr 14 pg/mL (<20)
[2023-10-03] MEDS: Enoxaparin 40 MG/0.4 ML SYR SUBCUT SCH (21:38)
[2023-10-04] MEDS: Sulfur Hexaflouride MICROSPHR 25 MG VIAL IV ONE (04:39)
[2023-10-04 06:28] LABS: ABS Eosinophils 0.1 10^3/uL (0.0-0.5); ABS Lymphocytes 0.8 10^3/uL (1.0-4.8); ABS Neutrophils 10.6 10^3/uL (1.5-7.6); Eosinophil % 0.5 %; Hematocrit 36.3 % (38-53); Hemoglobin 12.4 g/dL (13.2-16.3); Lymphocyte % 6.3 %; Mean Corpuscular Hemoglobin 32.3 pg (27-33); Mean Corpuscular Hgb Conc 34.1 g/dL (31-36); Mean Corpuscular Volume 94.7 fL (80-97); Mean Platelet Volume 7.4 fL (7.5-11.2); Platelet Count 243 10^3/uL (150-450); Red Blood Count 3.83 10^6/uL (4.06-5.63); Red Cell Distribution Width 13.3 % (12-17); White Blood Count 12.5 10^3/uL (3.6-10.2)
[2023-10-04 07:05] LABS: Calcium 8.5 mg/dL (8.6-10.3); Creatinine, Serum 1.06 mg/dL (0.67-1.17); Potassium 4.3 mmol/L (3.5-5.0)
[2023-10-04 09:26] LABS: C Reactive Protein 275.97 mg/L (<8.01)
[2023-10-04 10:20] LABS: Erythrocyte Sed Rate 63 mm/Hr (0-14)
[2023-10-05] MEDS ORDERED: Morphine 2 MG/ML SYRINGE IV PRN (04:18)
[2023-10-05] MEDS: HYDROmorphone 1 MG/1 ML SYRINGE IV SLOW PU PRN (04:47)
[2023-10-05 22:57] LABS: Anaplasma phagocytophilum Negative (Negative); B. miyamotoi PCR, B Negative (Negative); Babesia divergens/MO-1 Negative (Negative); Babesia ducani Negative (Negative); Ehrlichia chaffeensis Negative (Negative); Ehrlichia ewingii/canis Negative (Negative); Ehrlichia muris eauclairensis Negative (Negative)
[2023-10-06 05:57] LABS: ABS Eosinophils 0.1 10^3/uL (0.0-0.5); ABS Lymphocytes 1.2 10^3/uL (1.0-4.8); ABS Monocytes 0.8 10^3/uL (0.0-1.1); ABS Neutrophils 7.4 10^3/uL (1.5-7.6); Hematocrit 37.4 % (38-53); Hemoglobin 12.8 g/dL (13.2-16.3); Lymphocyte % 12.7 %; Mean Corpuscular Hemoglobin 32.5 pg (27-33); Mean Corpuscular Hgb Conc 34.1 g/dL (31-36); Mean Corpuscular Volume 95.3 fL (80-97); Mean Platelet Volume 7.7 fL (7.5-11.2); Platelet Count 283 10^3/uL (150-450); Red Blood Count 3.92 10^6/uL (4.06-5.63); Red Cell Distribution Width 13.2 % (12-17); White Blood Count 9.6 10^3/uL (3.6-10.2)
[2023-10-06 06:02] LABS: Calcium 8.9 mg/dL (8.6-10.3); Creatinine, Serum 0.93 mg/dL (0.67-1.17); Magnesium 2.3 mg/dL (1.9-2.7); Potassium 4.5 mmol/L (3.5-5.0); eGFR CKD-EPI 100.7 (>60)
[2023-10-07 06:18] LABS: Albumin 3.6 g/dL (3.2-5.2); Albumin/Globulin Ratio 1.2 (1-3); Calcium 9.1 mg/dL (8.6-10.3); Creatinine, Serum 0.85 mg/dL (0.67-1.17); Globulin 2.9 g/dL (2-4); Magnesium 2.3 mg/dL (1.9-2.7); Potassium 4.5 mmol/L (3.5-5.0); Total Bilirubin 0.5 mg/dL (0.2-1.0); Total Protein 6.5 g/dL (6.4-8.9); eGFR CKD-EPI 106.5 (>60)
[2023-10-07 09:56] VITALS: BP 129/83
== END 2023-10-07 14:07 | disposition home or self-care (01) | DRG 720 ==
LOC: EDHOLD 14:55 → ED 14:55 → SUATTDRO 10-03 01:58 → MED 10-03 03:55 → SUATTDRO 10-05 11:22
PROVIDERS: ADMIT Internal Medicine; ATTEND Internal Medicine

== ENCOUNTER 2023-11-21 04:54 | Inpatient (IN) ==
[2023-11-21] MEDS ORDERED: cefTRIAXone 2 GM ADDV.VIAL 2 GM in NS 0.9% 100 ml BAG 100 ML IV ONE (06:38)
[2023-11-21 07:10] LABS: ABS Basophils 0.1 10^3/uL (0.0-0.1); ABS Eosinophils 0.4 10^3/uL (0.0-0.5); ABS Lymphocytes 1.3 10^3/uL (1.0-4.8); ABS Monocytes 1.1 10^3/uL (0.0-1.1); ABS Neutrophils 9.8 10^3/uL (1.5-7.6); ABS Nucleated RBC 0.01 10^3/ul; Eosinophil % 2.8 %; Hematocrit 40.6 % (38-53); Hemoglobin 13.8 g/dL (13.2-16.3); Lymphocyte % 10.4 %; Mean Corpuscular Hemoglobin 32.1 pg (27-33); Mean Corpuscular Hgb Conc 34.1 g/dL (31-36); Mean Corpuscular Volume 94.1 fL (80-97); Mean Platelet Volume 7.9 fL (7.5-11.2); Platelet Count 223 10^3/uL (150-450); Red Blood Count 4.31 10^6/uL (4.06-5.63); Red Cell Distribution Width 14.8 % (12-17); White Blood Count 12.6 10^3/uL (3.6-10.2)
[2023-11-21] MEDS: Morphine 2 MG/ML SYRINGE IV ONE (07:17)
[2023-11-21] MEDS: Ondansetron 4 mg VIAL 2 MG/ML 2 ml VIAL IV ONE (07:19)
[2023-11-21] MEDS: Lactated Ringers SEPSIS* BAG 2,260 ML IV ONE (07:20)
[2023-11-21] MEDS: Acetaminophen IV 1 GM/100ML 1,000 MG/100 ML BAG IV ONE (07:21)
[2023-11-21 07:33] LABS: Activated Partial Thrombo Time 35.3 seconds (26.0-38.0); INR 1.12 (0.85-1.14)
[2023-11-21] MEDS: cefTRIAXone 2 gm/50 mL D5W 2 GM/50 ML BAG IV ONE (07:45)
[2023-11-21] MEDS: Vancomycin 1,500 MG in NS 0.9% 250 ml 250 ML IVPB ONE (08:11)
[2023-11-21 08:13] LABS: Albumin 4.6 g/dL (3.2-5.2); Albumin/Globulin Ratio 1.6 (1-3); C Reactive Protein 129.44 mg/L (<8.01); Calcium 9.6 mg/dL (8.6-10.3); Creatinine, Serum 0.95 mg/dL (0.67-1.17); Globulin 2.8 g/dL (2-4); Potassium 4.3 mmol/L (3.5-5.0); Total Bilirubin 1.1 mg/dL (0.2-1.0); Total Protein 7.4 g/dL (6.4-8.9); eGFR CKD-EPI 98.1 (>60)
[2023-11-21 09:32] LABS: Erythrocyte Sed Rate 28 mm/Hr (0-14)
[2023-11-21 10:23] LABS: High Sensitivity Troponin 1 Hr 6 pg/mL (<20)
[2023-11-21 11:31] LABS: Urine Appearance Clear; Urine Bilirubin Negative (Negative); Urine Blood Negative (Negative); Urine Color Colorless; Urine Glucose Negative (Negative); Urine Ketones Negative (Negative); Urine Nitrite Negative (Negative); Urine Protein Negative (Negative); Urine Specific Gravity 1.006 (1.002-1.030); Urine Urobilinogen Negative (Negative)
[2023-11-21] MEDS ORDERED: Ondansetron 4 mg VIAL 2 MG/ML 2 ml VIAL IV PRN (11:39)
[2023-11-21] MEDS ORDERED: Polyethylene Glycol 3350 17 GM PACKET PO PRN (12:30)
[2023-11-21] MEDS ORDERED: Albuterol 2.5mg/3 ml (0.083%) NEB.SOLN INH PRN (12:30)
[2023-11-21] MEDS: ceFAZolin 2 GM PREMIX 2 GM/50 ML BAG IV SCH ×2 (12:34→20:07)
[2023-11-21] MEDS: Gadoteridol (CONTRAST) 279.3 MG/ML 10 ML IV ONE (14:15)
[2023-11-21] MEDS: Mometasone/Formoter 200/5 MDI INH SCH (18:33)
[2023-11-22 06:08] LABS: ABS Eosinophils 0.4 10^3/uL (0.0-0.5); ABS Monocytes 0.9 10^3/uL (0.0-1.1); ABS Neutrophils 5.7 10^3/uL (1.5-7.6); Eosinophil % 4.7 %; Hematocrit 36.2 % (38-53); Hemoglobin 12.4 g/dL (13.2-16.3); Lymphocyte % 12.1 %; Mean Corpuscular Hemoglobin 32.6 pg (27-33); Mean Corpuscular Hgb Conc 34.2 g/dL (31-36); Mean Corpuscular Volume 95.3 fL (80-97); Mean Platelet Volume 8.2 fL (7.5-11.2); Nucleated Red Blood Cells % 0.1 %/100WBC (0.0-0.8); Platelet Count 187 10^3/uL (150-450); Red Cell Distribution Width 14.7 % (12-17)
[2023-11-22 06:28] LABS: Calcium 8.8 mg/dL (8.6-10.3); Creatinine, Serum 0.96 mg/dL (0.67-1.17); Potassium 4.3 mmol/L (3.5-5.0); eGFR CKD-EPI 96.9 (>60)
[2023-11-22] MEDS: Influenza Vaccine *TRI* 2024-25* 0.5 ML SYRINGE IM ONE (10:02)
[2023-11-23 05:38] LABS: ABS Eosinophils 0.5 10^3/uL (0.0-0.5); ABS Monocytes 0.9 10^3/uL (0.0-1.1); ABS Nucleated RBC 0.01 10^3/ul; Eosinophil % 7.2 %; Hematocrit 36.9 % (38-53); Hemoglobin 12.2 g/dL (13.2-16.3); Lymphocyte % 16.3 %; Mean Corpuscular Hemoglobin 31.7 pg (27-33); Mean Corpuscular Hgb Conc 33.2 g/dL (31-36); Mean Corpuscular Volume 95.6 fL (80-97); Mean Platelet Volume 7.9 fL (7.5-11.2); Nucleated Red Blood Cells % 0.1 %/100WBC (0.0-0.8); Platelet Count 192 10^3/uL (150-450); Red Blood Count 3.86 10^6/uL (4.06-5.63); Red Cell Distribution Width 14.7 % (12-17); White Blood Count 6.4 10^3/uL (3.6-10.2)
[2023-11-23 06:06] LABS: Albumin 3.8 g/dL (3.2-5.2); Albumin/Globulin Ratio 1.5 (1-3); C Reactive Protein 138.05 mg/L (<8.01); Calcium 8.9 mg/dL (8.6-10.3); Creatinine, Serum 0.99 mg/dL (0.67-1.17); Globulin 2.5 g/dL (2-4); Magnesium 2.2 mg/dL (1.9-2.7); Phosphorus 3.7 mg/dL (2.5-5.0); Potassium 4.4 mmol/L (3.5-5.0); Total Bilirubin 0.5 mg/dL (0.2-1.0); Total Protein 6.3 g/dL (6.4-8.9); eGFR CKD-EPI 93.4 (>60)
[2023-11-23] MEDS: Iohexol 300 (CONTRAST) 10 ML SDV IV ONE (11:56)
[2023-11-23] MEDS: Oxacillin 2 GM in NS 0.9% 100 ml BAG 100 ML IVPB SCH ×2 (16:51→21:18)
[2023-11-24 06:47] LABS: ABS Eosinophils 0.5 10^3/uL (0.0-0.5); ABS Monocytes 0.7 10^3/uL (0.0-1.1); Eosinophil % 9.5 %; Hematocrit 35.3 % (38-53); Hemoglobin 11.9 g/dL (13.2-16.3); Lymphocyte % 19.3 %; Mean Corpuscular Hemoglobin 32.1 pg (27-33); Mean Corpuscular Hgb Conc 33.8 g/dL (31-36); Mean Corpuscular Volume 94.9 fL (80-97); Platelet Count 209 10^3/uL (150-450); Red Blood Count 3.72 10^6/uL (4.06-5.63); Red Cell Distribution Width 14.6 % (12-17); White Blood Count 5.3 10^3/uL (3.6-10.2)
[2023-11-24 07:03] LABS: C Reactive Protein 111.68 mg/L (<8.01); Calcium 8.9 mg/dL (8.6-10.3); Creatinine, Serum 1.06 mg/dL (0.67-1.17); Magnesium 2.2 mg/dL (1.9-2.7); Potassium 4.7 mmol/L (3.5-5.0)
[2023-11-24] MEDS ORDERED: Midazolam 5 mg/5 ml VIAL 1 mg/ml 5 ml VIAL (5 mg) ONE (14:03)
[2023-11-24] MEDS ORDERED: fentaNYL 100 mcg/2 ml 50 MCG/ML VIAL ONE (14:03)
[2023-11-24] MEDS ORDERED: Naloxone 0.4 mg VIAL 0.4 mg/ml 1 ml VIAL ONE (14:03)
[2023-11-24] MEDS ORDERED: Flumazenil 0.5 mg/5 ml 0.1 MG/ML 5 ml VIAL ONE (14:03)
[2023-11-24] MEDS ORDERED: Naloxone 0.4 mg VIAL 0.4 mg/ml 1 ml VIAL IV PUSH PRN (14:30)
[2023-11-24] MEDS ORDERED: Flumazenil 0.5 mg/5 ml 0.1 MG/ML 5 ml VIAL IV PRN (14:30)
[2023-11-24] MEDS: fentaNYL 100 mcg/2 ml 50 MCG/ML VIAL IV SLOW PU ONE (15:12)
[2023-11-24] MEDS ORDERED: Morphine 2 MG/ML SYRINGE IV PRN (15:13)
[2023-11-24] MEDS: Midazolam 10 mg/10 ml VIAL 1 mg/ml 10 ml VIAL (10 mg) IV SLOW PU ONE (15:13)
[2023-11-24] MEDS: Iohexol 300 (CONTRAST) 10 ML SDV IV ONE (17:11)
[2023-11-26 14:10] VITALS: BP 136/80
[2023-11-26] MEDS ORDERED: Oxacillin 2 GM in NS 0.9% 100 ml BAG 100 ML IVPB SCH (16:00)
== END 2023-11-26 14:30 | disposition home or self-care (01) | DRG 720 ==
LOC: ED 04:54 → EDHOLD 04:54 → SUATTDRO 11:39 → SSU 12:33
PROVIDERS: ADMIT Student in an Organized Health Care Education/Training Program; ATTEND Hospitalist